=== PATIENT | female | born 1945 | race Caucasian/White ===

== ENCOUNTER 2020-03-31 15:23 | Observation (INO) | payer MEDICARE, SELFPAY ==
--- NOTE | ~2020-03-31 | CT_ITS ---
EXAMINATION: CT brain wo con DATE: 04/01/2020 16:59 INDICATION: Recurrent headache with fever TECHNIQUE: Computed tomography (CT) of the head was performed without intravenous contrast. The mA wa s adjusted according to patient size. Iterative reconstruction technique was employed. Exam dose: 60 5.33 mGy-cm total exam DLP. COMPARISON: 08/31/2018 CT brain 08/31/2018 MRI brain/brainstem FINDINGS: There is moderate cerebral atrophy, more prominent in the frontal areas. No intracranial mass lesion or hemorrhage or cerebrovascular accident. No subdural or epidural hemat ashley. Bilateral hyperostosis frontalis interna. No skull fracture or bone destruction. IMPRESSION: Moderate cerebral atrophy; no acute intracranial finding or significant change Reviewed, dictated and finalized at [facility]. Reviewed, dictated and finalized at [facility]. IMPRESSION: Moderate cerebral atrophy; no acute intracranial finding or signif icant change
--- NOTE | ~2020-03-31 | XR_ITS ---
EXAMINATION: XR chest 1V portable 03/31/2020 16:48 INDICATION: Fever and shortness of breath PROCEDURE: AP portable chest COMPARISON: 08/30/2018 FINDINGS: The lungs are clear. Mild cardiomegaly. Chronic elevation of the right diaphragm suggesting phrenic nerve paralysis. There are no pleural effusions. There is no pneumothorax suspected. IMPRESSION: 1: NO ACUTE CARDIOPULMONARY DISEASE. Reviewed, dictated and finalized at location [facility].
[2020-03-31 15:29] VITALS: BP 175/75; PULSE 104; RESP 20; TEMP 37.9; O2SAT 97
--- NOTE | 2020-03-31 15:56 | ECG_ITS ---
Measurements Intervals [place] Rate: 98 P: 35 [place]: 201 QRS: -3 QRSD: 97 T: 68 QT: 275 QTc: 351 Interpretive Statements SINUS RHYTHM NONSPECIFIC T-WAVE ABNORMALITY- LAT/HIGH LAT LEADS BORDERLINE ECG Electronically Signed On 03-31-2020 17:22:46 CDT by Viral Burciaga D.O.
[2020-03-31 16:25] LABS: Basophils Percent Auto 0.3 % (0.2-1.2); Eosinophils Absolute Auto 0.1 K/mm3 (0-0.3); Eosinophils Percent Auto 0.5 % (0-4.4); Hematocrit 37.3 % (37.0-47.0); Hemoglobin 12.4 g/dL (12.0-15.0); Immature Granulocyte Absolute 0.07 K/mm3 (0.00-0.031); Immature Granulocyte Percent A 0.5 % (0-0.5); Lymphocytes Absolute Auto 0.57 K/mm3 (0.9-3.2); Lymphocytes Percent Auto 4.2 % (18.3-44.2); Mean Corpuscular HGB Conc 33.2 g/dl (32-36); Mean Corpuscular Hemoglobin 28.8 pg (26-34); Mean Corpuscular Volume 86.5 fl (80-100); Mean Platelet Volume 10.7 fl (7.4-10.4); Monocytes Absolute Auto 0.6 K/mm3 (0.1-0.6); Monocytes Percent Auto 4.7 % (2.6-8.5); Neutrophils Absolute Auto 12.1 K/mm3 (1.3-6.7); Neutrophils Percent Auto 89.8 % (45.5-73.1); Platelet Count Result 230 k/mm3 (150-375); Red Blood Count 4.31 M/mm3 (4.2-5.4); Red Cell Distribution Width 12.9 % (11.5-14.5); White Blood Count 13.5 K/mm3 (4.5-10.0)
[2020-03-31 16:35] LABS: Prothrombin Time 12.7 Seconds (11.1-14.7)
[2020-03-31 16:36] LABS: Partial Thromboplastin Time 28.7 SECONDS (22.3-36.8)
--- NOTE | 2020-03-31 16:36 | ED.FEVER ---
HPI - Fever General Chief Complaint: Fever Stated Complaint: fevers Time Seen by Provider: 03/31/20 16:00 History of Present Illness HPI Narrative: Patient is a 74-year-old female who presents ER with fever. Sudden onset this morning. Associated with body aches and fatigue and chills. Reports she has been having these symptoms once a month for the last 3 to 4 months. The symptoms only last for 24 hours that is why she thought she would come in today when it occurred. Reports she has been cooped up in her house around nobody. Her only possible exposure is her son who is a nurse however the last time she saw him he was wearing a mask and was 20 feet away from her. She has mild cough but no runny nose/sore throat. She is without any abdominal or urinary symptoms. Related Data Home Medications Medication Instructions Recorded Confirmed multivitamin 1 tablet PO DAILY 08/31/19 methylprednisolone 4 mg PO DAILY 03/31/20 Allergies Allergy/AdvReac Type Severity Reaction Status Date / Time wool AdvReac Intermediate Itching Verified 03/31/20 16:21 ANESTHETICS AdvReac Severe DIFFICULTY Uncoded 03/31/20 16:21 WAKING Review of Systems Review of Systems: All systems reviewed & are unremarkable except as noted in HPI and below Constitutional: Constitutional: Reports chills, Reports fatigue and Reports fever(s) ENT: Denies dizziness, Denies nasal congestion and Denies sore throat Cardiovascular: Cardiovascular: Reports chest pain (Reports mild discomfort that is normal for her this been ongoing since begi) PMFSH Past Medical History Medical History (Updated 03/31/20 @ 19:20 by Ramy So MD) Anxiety Chronic SI joint pain Essential (primary) hypertension Hyperlipidemia Insomnia Left hip pain Osteoarthritis Sciatic leg pain Surgical History Surgical History (Updated 08/31/19 @ 14:[address] NP) H/O breast augmentation History of appendectomy Exam Narrative: Exam Narrative: GENERAL: Well-appearing, well-nourished, and in no acute distress. HEAD: Normocephalic, atraumatic. ENT: Mucous membranes moist. NECK: Supple. CHEST: Clear to auscultation. No respiratory distress. HEART: Regular rate and rhythm. Normal peripheral pulses. ABDOMEN: Soft, nontender, nondistended, mild CVA tenderness right greater than left. EXTREMITIES: Normal range of motion. No edema. SKIN: Warm, dry, no rash. NEURO: Alert and oriented x3. Course Course Emergency Course: Patient informed of results. Early sepsis by lab work. Suspect COVID infection. Admit to hospital service. Vital Signs Vital signs: Vital Signs Temperature 100.2 F H 03/31/20 15:29 Pulse Rate 104 H 03/31/20 15:29 Respiratory Rate 20 03/31/20 15:29 Blood Pressure 175/75 H 03/31/20 15:29 Pulse Oximetry 97 03/31/20 15:29 Temperature 98.0 F 03/31/20 18:25 Pulse Rate 100 03/31/20 18:13 Respiratory Rate 20 03/31/20 18:13 Blood Pressure 133/56 L 03/31/20 18:13 Pulse Oximetry 99 03/31/20 18:13 MDM - Fever Lab Data Result diagrams: 03/31/20 16:11 03/31/20 16:11 Labs: Lab Results 03/31/20 03/31/20 03/31/20 Range/Units 16:11 16:11 16:11 WBC 13.5 H (4.5-10.0) K/mm3 RBC 4.31 (4.2-5.4) M/mm3 Hgb 12.4 (12.0-15.0) g/dL Hct 37.3 (37.0-47.0) % MCV 86.5 (80-100) fl MCH 28.8 (26-34) pg MCHC 33.2 (32-36) g/dl RDW 12.9 (11.5-14.5) % Plt Count 230 (150-375) k/mm3 MPV 10.7 H (7.4-10.4) fl Immature Gran % (Auto) 0.5 (0-0.5) % Neut % (Auto) 89.8 H (45.5-73.1) % Lymph % (Auto) 4.2 L (18.3-44.2) % Trigg % (Auto) 4.7 (2.6-8.5) % Eos % (Auto) 0.5 (0-4.4) % Baso % (Auto) 0.3 (0.2-1.2) % Lymph # (Auto) 0.57 L (0.9-3.2) K/mm3 Trigg # (Auto) 0.6 (0.1-0.6) K/mm3 Eos # (Auto) 0.1 (0-0.3) K/mm3 Baso # (Auto) 0.0 (0.0-0.1) K/mm3 Abs Immat Gran (auto) 0.07 H (0.00-0.031) K/mm3 Absolute Neuts (
[2020-03-31 16:39] LABS: Lactic Acid Reflex 2.4 mmol/L (0.7-2.1)
[2020-03-31 16:41] LABS: Alanine Aminotransferase 22 U/L (4-35); Albumin Level 4.2 g/dL (3.5-5.1); Alkaline Phosphatase 58 U/L (38-126); Aspartate Amino Transferase 28 U/L (14-36); Bilirubin,Total 0.4 mg/dL (0.2-1.3); Blood Urea Nitrogen 10 mg/dL (7-17); CRP 1.4 mg/dL (<1.0); Carbon Dioxide 22 mmol/L (22-30); Chloride 100 mmol/L (98-107); Estimated CRCL calculation 51 ml/min; Estimated Glomerular Filt Rate > 60; Glucose 153 mg/dL (65-105); Lipase 133 U/L (23-300); Potassium 4.3 mmol/L (3.4-5.0); Sodium 132 mmol/L (137-145)
[2020-03-31 16:50] LABS: Troponin I < 0.012 ng/mL (0.000-0.034)
[2020-03-31] MEDS: ACETAMINOPHEN 500 MG TABLET 1000 MG PO (16:58)
[2020-03-31] MEDS: SODIUM CHLORIDE 0.9% IV 1,000 ML 999 ML IV CONT (16:58)
[2020-03-31 18:13] VITALS: BP 133/56; PULSE 100; RESP 20; O2SAT 99
[2020-03-31 18:25] VITALS: TEMP 36.7
[2020-03-31 18:34] LABS: Add Urine Microscopic? NO; Appearance Urine Clear (Clear); Bilirubin Urine Negative (Negative); Blood Urine Negative (Negative); Color Urine Straw (Yellow); Glucose Urine UA Negative (Negative); Ketones Urine Negative (Negative); Leukocyte Esterase Ur Negative LEU/UL (Negative); Nitrate Urine Negative (Negative); Protein Urine Negative (Negative); Specific Grav Ur 1.006 (1.001-1.035); Urobilinogen Urine Negative mg/dL (<2.0)
[2020-03-31 19:23] LABS: Reflex Lactic Acid Yes or No Add Lactic
[2020-03-31 19:31] VITALS: BP 122/78; PULSE 78; RESP 20; O2SAT 99
[2020-03-31 21:34] LABS: Lactic Acid 2.3 mmol/L (0.7-2.1)
--- NOTE | 2020-03-31 22:38 | ADMGEN ---
This patient, Shannan Orona, was admitted to [facility] Surg Room 327-01. Patient/family oriented to hospital policies and general routines including ID bracelet, bed and alarms, visiting hours, pain management, procedures, bathroom and other care routines, personal items, smoking policy, room service/diet, and visiting hours. Valuables list has been completed. Information on how to activate the Rapid Response Team has been discussed. Patient/Family are encouraged to report perceived risks to care and to ask questions if they do not understand what they are told or what they should do.
[2020-04-01] VITALS: BP 131/51; PULSE 95; RESP 20; TEMP 36.7; O2SAT 96; BMI 32.2
[2020-04-01] MEDS: SODIUM CHLORIDE 0.9% IV 1,000 ML 125 ML IV CONT (00:49)
[2020-04-01 02:00] VITALS: BP 117/50; PULSE 84; RESP 18; TEMP 36.2; O2SAT 97
[2020-04-01 06:00] VITALS: BP 139/86; PULSE 74; RESP 18; TEMP 37.1; O2SAT 97
[2020-04-01 09:26] LABS: Hematocrit 33.2 % (37.0-47.0); Hemoglobin 11.1 g/dL (12.0-15.0); Mean Corpuscular HGB Conc 33.4 g/dl (32-36); Mean Corpuscular Hemoglobin 28.9 pg (26-34); Mean Corpuscular Volume 86.5 fl (80-100); Mean Platelet Volume 10.6 fl (7.4-10.4); Platelet Count Result 198 k/mm3 (150-375); Red Blood Count 3.84 M/mm3 (4.2-5.4); Red Cell Distribution Width 13.2 % (11.5-14.5); White Blood Count 7.6 K/mm3 (4.5-10.0)
--- NOTE | 2020-04-01 09:36 | PM.IMHP ---
H&P: HPI History of Present Illness Chief complaint: covid pui, viral syndrome Narrative: Date of admission: 03/31/2020 Date of discharge: 04/01/2020 Shannan Orona is a 74 year old female with a PMH significant for HTN, HLD, and anxiety who presented to the emergency department on 03/31/2020 from home following complaints of a dull aching headache rated 8/10 in severity that resolved overnight. She tells me this is her fourth episode since September of a very severe headache in her frontal region. Her headaches typically last approximately 12-15 hours. She denies confusion. It is not similar to migraines she has had in the past and she does not believe these are migraines. She denies any prodromal symptoms. When she gets a headache, she also feels extremely weak and has trouble getting around. She also has associated fever and chills with her headache episodes. She has several other complaints including chapped lips, dry cough, and occasional nausea. She denies any episodes of abdominal pain, vomiting, or diarrhea. She denies shortness of breath or chest pain. She does not endorse sore throat, dysphagia, or odynophagia. She denies sinus pressure or congestion. She has not had visual changes. She denies dysuria, hematuria, urgency, or frequency. Presently, she feels well and her only complain is fatigue. She tells me she is usually able to get around at home without difficulty, but when she has episodes of headache and weakness she struggles more. It is worth noting that the patient has been ordering her Xanax online from [facility] since September. She mentions that her symptoms started to occur around the same time, and wonders if this might be related. She has not been around anyone with COVID-19 and has been following precautions, her Covid test is pending. Her CXR and UA were unremarkable. Review of Systems Review of Systems: Narrative: A 12 point review of systems was reviewed with pertinent positives and negatives as per HPI. [facility] Past Medical History Medical History (Updated 04/01/20 @ 10:18 by Norah Gorman PA-C) Anxiety Chronic SI joint pain Essential (primary) hypertension Hyperlipidemia Insomnia Left hip pain Osteoarthritis Sciatic leg pain Surgical History Surgical History (Updated 04/01/20 @ 11:38 by Norah Gorman PA-C) H/O breast augmentation 1969 History of appendectomy History of facelift 2009 Family History Family History (Updated 04/01/20 @ 11:40 by Norah Gorman PA-C) Mother Suicide Father Diabetes mellitus Heart disease Cancer Unspecified type/location Son Malignant neoplasm of prostate Social History Social History (Updated 04/01/20 @ 11:42 by Norah Gorman PA-C) Social History: Ms. Orona lives at home alone. She is independent in her ADLs and drives herself. 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 Her PCP is Dr. Reaves. Her son, Christian, is a nurse at [employer]. She appoints Christian as her surrogate decision maker. She is unable to tell me what she wishes her code status to be and defers this decision to her son. Smoking status: Never smoker Alcohol intake: current Alcohol use details: 1 glass of wine per month Substance use: never Living arrangements: alone Occupation/Education: retired Gender identity (if verbalized by the patient): Female Spiritual care concerns: No Meds Home Medications and Allergies Home Medications Medication Instructions Recorded Confirmed Type multivitamin 1 tablet PO HS 08/31/19 03/31/20 History alendronate 70 mg tablet 70 mg PO WEEKLY #12 tablet 12/29/19 03/31/20 Rx alprazolam 0.5 mg PO HS 03/31/20 03/31/20 History glucosamine sulfate [Glucosamine] 500 mg PO HS 03/31/20 03/31/20 History lisinopril 10 mg PO HS 03/31/20 03/31/20 History simvastatin [Zocor] 40 mg PO HS 03/31/20 03/31/20 History Allergies Allergy/AdvReac Type Severity Reaction Status Date / Time wool AdvReac Intermed
[2020-04-01 09:38] LABS: Lactate Dehydrogenase 398 U/L (313-618)
[2020-04-01 09:42] LABS: CRP 4.9 mg/dL (<1.0); Creatine Kinase 87 U/L (30-135)
[2020-04-01 09:47] LABS: Alanine Aminotransferase 18 U/L (4-35); Albumin Level 3.6 g/dL (3.5-5.1); Alkaline Phosphatase 48 U/L (38-126); Aspartate Amino Transferase 20 U/L (14-36); Bilirubin,Total 0.4 mg/dL (0.2-1.3); Blood Urea Nitrogen 9 mg/dL (7-17); Calcium 8.3 mg/dL (8.4-10.2); Carbon Dioxide 25 mmol/L (22-30); Chloride 108 mmol/L (98-107); Estimated CRCL calculation 58 ml/min; Estimated Glomerular Filt Rate > 60; Glucose 104 mg/dL (65-105); Potassium 3.9 mmol/L (3.4-5.0); Sodium 137 mmol/L (137-145)
[2020-04-01 10:00] VITALS: BP 144/59; PULSE 87; RESP 20; TEMP 36.7; O2SAT 96
[2020-04-01 10:42] LABS: SARS-CoV-2 RNA PCR Negative
[2020-04-01 14:00] VITALS: BP 129/59; PULSE 65; RESP 20; TEMP 36.9; O2SAT 96
[2020-04-01 15:48] LABS: Amphetamine Screen Urine Negative (Negative); Barbiturate Screen Urine Negative (Negative); Benzodiazepines Screen Urine Positive (Negative); Cannabinoid Screen Urine Negative (Negative); Cocaine Screen Urine Negative (Negative); Methadone Screen Urine Negative (Negative); Opiate Screen Urine Negative (Negative); Phencyclidine Screen Urine Negative (Negative)
[2020-04-01] MEDS: ALPRAZolam 0.5 MG TABLET PO (20:39)
[2020-04-01] MEDS: FAMOTIDINE 20 MG TABLET PO (20:39)
[2020-04-01 22:00] VITALS: BP 153/61; PULSE 75; RESP 20; TEMP 36.6; O2SAT 97
[2020-04-02 06:00] VITALS: BP 140/65; PULSE 67; RESP 20; TEMP 36.5; O2SAT 93
[2020-04-02 06:23] LABS: Hematocrit 35.8 % (37.0-47.0); Hemoglobin 11.8 g/dL (12.0-15.0); Mean Corpuscular Hemoglobin 28.6 pg (26-34); Mean Corpuscular Volume 86.7 fl (80-100); Mean Platelet Volume 10.3 fl (7.4-10.4); Platelet Count Result 236 k/mm3 (150-375); Red Blood Count 4.13 M/mm3 (4.2-5.4); Red Cell Distribution Width 13.2 % (11.5-14.5); White Blood Count 6.2 K/mm3 (4.5-10.0)
[2020-04-02 06:32] LABS: Blood Urea Nitrogen 12 mg/dL (7-17); Calcium 8.7 mg/dL (8.4-10.2); Carbon Dioxide 25 mmol/L (22-30); Chloride 108 mmol/L (98-107); Estimated CRCL calculation 51 ml/min; Estimated Glomerular Filt Rate > 60; Glucose 110 mg/dL (65-105); Potassium 4.2 mmol/L (3.4-5.0); Sodium 139 mmol/L (137-145)
[2020-04-02 10:00] VITALS: BP 131/68; PULSE 78; RESP 18; TEMP 36.2; O2SAT 95
[2020-04-02] MEDS: FAMOTIDINE 20 MG TABLET PO (10:02)
--- NOTE | 2020-04-02 12:20 | PM.DS ---
DS: Admitting Diagnosis Admitting Diagnosis Admitting Diagnosis: Sepsis, unspecified organism DS: Discharge Diagnosis Discharge Diagnosis (1) Sepsis: Code(s): A41.9 - Sepsis, unspecified organism Status: Acute (2) Headache: Qualifiers: Headache type: unspecified Headache chronicity pattern: episodic headache Intractability: not intractable Qualified Code(s): R51 - Headache Code(s): R51 - Headache Status: Acute (3) Adverse drug effect: Qualifiers: Encounter type: initial encounter Qualified Code(s): T50.905A - Adverse effect of unspecified drugs, medicaments and biological substances, initial encounter Code(s): T50.905A - Adverse effect of unspecified drugs, medicaments and biological substances, initial encounter Status: Suspected (4) Generalized weakness: Code(s): R53.1 - Weakness Status: Acute (5) Essential (primary) hypertension: Code(s): I10 - Essential (primary) hypertension Status: Chronic (6) Person under investigation for COVID-19: Code(s): Z20.828 - Contact with and (suspected) exposure to other viral communicable diseases Status: Acute DS: Summary Hospital Course Reason for hospitalization: Fever Hospital Course: Mrs. Orona is a 74 y.o. female with PMH significant for HTN, HLD, and anxiety who presented to the emergency department on 03/31/2020 from home following complaints of a dull aching headache rated 8/10 in severity that resolved overnight. She also reported fever prior to admission. She reported four prior episodes since September. She also reported chapped lips and dry cough. She also reported ordering Xanax online from [facility] since September. She mentions that her vague symptoms started to occur around the same time, and wonders if this might be related. Initial workup in the ED revealed WBC 13,500, Hb 12.4, Hct 37.3, sodium 132, lactic acid 2.4, LFTs WNL, CRP 1.4, unremarkable UA, and chest xray with no evidence of acute cardiopulmonary disease. She was admitted to the hospitalist service in an isolation room for COVID-[address] was performed and revealed moderate cerebral atrophy without acute findings including no evidence of mass lesion, hemorrhage, or CVA. She met SIRS criteria with fever, tachycardia, and leukocytosis at admission. Lactic elevated at 2.4. This appears to have resolved. She is afebrile, leukocytosis resolved, and lactic is now 1.0. Blood cultures were obtained and reveal NGTD. Her fever resolved. There was no obvious source of infection and it is likely that she may have had a viral syndrome or adverse reaction to her non-FDA approved Xanax. Urine drug screen was positive for benzodiazepines. COVID-19 testing was negative. Her fevers resolved. Heavy metal panel was ordered and is pending. Extensive time was spent counseling the patient on the importance of avoiding non-FDA approved medications as there is the potential for tampering, mislabeling, or unregulated components. Her sx may be related to these medications. She was evaluated by PT/OT and she was at her baseline level of functioning with further PT/OT not indicated. I was called to the room as she was threatening to leave AMA as she reported that she felt well and did not want to stay in the hospital any longer. I advised that she may discharge but discussed the importance of seeking immediate medical care should she develop any further headaches, fever, or other concerning symptoms. She was discharged in stable condition on the afternoon of 04/02/20. Status at Discharge Functional status at discharge: independent ambulation Overall status at discharge: patient is back to baseline Time Spent with Patient Time attestation: Total time spent providing and/or coordinating discharge services: 35 minutes Exam Narrative: Exam Narrative: General: Well-developed and well-nourished 74 y.o. female who is sitting in the chair fully dressed and requesting
[2020-04-05 22:42] LABS: Arsenic, Blood <3 mcg/L (<23); Lead, Blood 5 mcg/dL (<5); Mercury, Blood <4 mcg/L (<=10)
== END 2020-04-02 12:00 | disposition home or self-care (01) ==
LOC: ANHED 19:20 → ANH3MEDSUR 19:55
PROVIDERS: Emergency Medicine; Physician Assistant; Admitting Provider Internal Medicine; Emergency Provider Emergency Medicine; PCP Family Medicine; Visit Provider Physician Assistant
DX: A41.9 Sepsis, unspecified organism (principal); R51 Headache; T50.905A Adverse effect of unspecified drugs, medicaments and biological substances, initial encounter; R53.1 Weakness; I10 Essential (primary) hypertension; E78.5 Hyperlipidemia, unspecified; F41.9 Anxiety disorder, unspecified; Z20.828 Contact with and (suspected) exposure to other viral communicable diseases; Z79.899 Other long term (current) drug therapy
CPT/HCPCS: 36415; 70450; 71045; 80048; 80053; 80307; 81003; 82175; 82550; 82728; 83605; 83615; 83655; 83690; 83825; 84484; 85025; 85027; 85610; 85730; 86140; 87040; 87635; 93005; 96360; 96361; 97161; 97165; 99285; A9270; C9803; G0378; J7030; U0003

== ENCOUNTER 2021-02-27 09:35 | Outpatient (CLI) | payer MEDICARE, SELFPAY ==
[2021-02-27 10:03] LABS: Alanine Aminotransferase 23 U/L (4-35); Albumin Level 4.1 g/dL (3.5-5.1); Alkaline Phosphatase 52 U/L (38-126); Anion Gap 12 mmol/L (8-16); Aspartate Amino Transferase 31 U/L (14-36); Bilirubin,Total 0.4 mg/dL (0.2-1.3); Blood Urea Nitrogen 14 mg/dL (7-17); Calcium 9.5 mg/dL (8.4-10.2); Carbon Dioxide 23 mmol/L (22-30); Chloride 109 mmol/L (98-107); Cholesterol 173 mg/dL (0-200); Estimated Glomerular Filt Rate > 60; Glucose 109 mg/dL (65-105); HDL Direct 65 mg/dL; Hemoglobin A1C 5.6 % (<5.7); Potassium 4.4 mmol/L (3.4-5.0); Sodium 144 mmol/L (137-145); Triglycerides 141 mg/dL (<150)
[2021-02-27 10:14] LABS: LDL Cholesterol Direct 69 mg/dL
== END 2021-02-27 09:36 | disposition home or self-care (01) ==
PROVIDERS: PCP Family Medicine; Visit Provider Physician Assistant
DX: R73.09 Other abnormal glucose (principal); E78.5 Hyperlipidemia, unspecified; I10 Essential (primary) hypertension
CPT/HCPCS: 36415; 80053; 80061; 83036

== ENCOUNTER 2021-08-10 07:00 | Observation (INO) | payer MEDICARE, SELFPAY ==
[2021-08-10] VITALS (17 sets, daily range): BP systolic 130–152; BP diastolic 54–73; PULSE 79–104; RESP 16–21; TEMP 36.4–37.6; O2SAT 93–100; BMI 32.0
--- NOTE | ~2021-08-10 | XR_ITS ---
EXAMINATION: XR chest 2V EXAM DATE: 08/10/2021 07:28 INDICATION: Midsternal chest pain radiating to back. TECHNIQUE: Frontal and lateral projections of the chest obtained and reviewed. There is no prior conrad dy for comparison. FINDINGS: There is elevated right hemidiaphragm, possible chronic paralysis. Small amount of bibasila r airspace disease probably atelectasis. No pneumothorax or pleural effusion. Cardiomediastinal silho uette is normal. There are mild bony degenerative changes. IMPRESSION: 1. Elevated right hemidiaphragm, possible paralysis. 2. Bibasilar subsegmental opacity probably atelectasis. Reviewed, dictated and finalized at location [facility]. 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
--- NOTE | ~2021-08-10 | CT_ITS ---
EXAMINATION: CTA chest PE protocol DATE: 08/10/2021 15:51 INDICATION: Midsternal chest pain with inspiration. TECHNIQUE: Computed tomography (CT) pulmonary angiogram of the chest was performed with 100 mL Omnipa que-350 intravenous contrast. Additional 3D reconstructions utilizing coronal maximum intensity proje ction (MIP) were performed. Automated exposure control and iterative reconstruction technique were em ployed. The dose-length product was 624.34 mGy-cm. COMPARISON: None FINDINGS: Excellent contrast opacification of the pulmonary arteries. There is mild streak artifact from dense contrast in the superior vena cava and right atrium. Severe respiratory motion artifact throughout laina th lungs which significantly decreases sensitivity in the segmental and subsegmental pulmonary arteri es. No definite pulmonary embolism. Elevation of the right hemidiaphragm with bibasilar consolidation in the right lower lobe with progressive crowding and favor atelectasis over pneumonia. Additional m ild discoid atelectasis in the right middle lobe and lingula. No pulmonary edema, pleural effusion or pneumothorax. Cardiomegaly. Atherosclerotic coronary artery calcifications. No pericardial effusion. Thoracic aorta is normal in caliber with no dissection. No pathologically enlarged thoracic lymphade nopathy. Visualized upper abdomen is unremarkable. Moderate lower cervical and mild to moderate thora cic spondylosis. IMPRESSION: 1. No definite pulmonary embolism. Evaluation significantly limited in the segmental and subsegmental pulmonary arteries due to a large amount of motion artifact. 2. Consolidation at the basilar right lower lobe and favor atelectasis with associated volume loss an d elevation of the right hemidiaphragm. Pneumonia not absolutely excludable but considered less likel y. 3. Cardiomegaly. Reviewed, dictated and finalized at location A. [employer] IN[employer] IMPRESSION: 1. No definite pulmonary embolism. Evaluation significantly limited in the segm ental and subsegmental pulmonary arteries due to a large amount of motion artif act. 2. Consolidation at the basilar right lower lobe and favor atelectasis with ass ociated volume loss and elevation of the right hemidiaphragm. Pneumonia not abs olutely excludable but considered less likely. 3. Cardiomegaly.
--- NOTE | 2021-08-10 07:04 | ECG_ITS ---
Measurements Intervals [place] Rate: 90 P: 40 MD: 201 QRS: -21 QRSD: 93 T: 82 QT: 337 QTc: 414 Interpretive Statements SINUS RHYTHM VENTRICULAR PREMATURE COMPLEX INCOMPLETE RIGHT BUNDLE BRANCH BLOCK LOW QRS VOLTAGE IN PRECORDIAL LEADS BORDERLINE R WAVE PROGRESSION, ANTERIOR LEADS BORDERLINE ST-T WAVE ABNORMALITY- HIGH LATERAL LEADS BASELINE ARTIFACT- I, III, AVR, AVL BORDERLINE ECG Electronically Signed On 08-10-2021 7:23:15 [facility] by Viral Burciaga D.O.
[2021-08-10 07:19] LABS: Basophils Percent Auto 0.4 % (0.2-1.2); Eosinophils Absolute Auto 0.2 K/mm3 (0-0.3); Eosinophils Percent Auto 2.3 % (0-4.4); Hematocrit 37.2 % (37.0-47.0); Hemoglobin 12.2 g/dL (12.0-15.0); Immature Granulocyte Absolute 0.03 K/mm3 (0.00-0.031); Immature Granulocyte Percent A 0.3 % (0-0.5); Lymphocytes Absolute Auto 1.18 K/mm3 (0.9-3.2); Lymphocytes Percent Auto 12.6 % (18.3-44.2); Mean Corpuscular HGB Conc 32.8 g/dl (32-36); Mean Corpuscular Hemoglobin 29.2 pg (26-34); Mean Platelet Volume 10.8 fl (7.4-10.4); Monocytes Absolute Auto 0.8 K/mm3 (0.1-0.6); Monocytes Percent Auto 8.9 % (2.6-8.5); Neutrophils Absolute Auto 7.1 K/mm3 (1.3-6.7); Neutrophils Percent Auto 75.5 % (45.5-73.1); Platelet Count Result 219 k/mm3 (150-375); Red Blood Count 4.18 M/mm3 (4.2-5.4); White Blood Count 9.4 K/mm3 (4.5-10.0)
--- NOTE | 2021-08-10 07:24 | ED.CHESTPAIN ---
HPI - Chest Pain General Chief Complaint: Chest Pain Stated Complaint: CP Time Seen by Provider: 08/10/21 07:07 Source: patient Mode of arrival: ambulatory Limitations: no limitations History of Present Illness HPI narrative: Patient is a 75-year-old female complaining of chest pain, left chest, tightness, nonradiating, 5 out of 10, started early this morning. Patient denies any shortness of breath, abdominal pain, nausea, vomiting, diaphoresis, fever or chills. Related Data Allergies Allergy/AdvReac Type Severity Reaction Status Date / Time No Known Allergies Allergy Verified 08/10/21 07:38 Review of Systems Review of Systems: All systems reviewed & are unremarkable except as noted in HPI and below Constitutional: Constitutional: Denies body ache(s), Denies chills, Denies excessive sweating, Denies fatigue, Denies fever(s), Denies headache(s), Denies lethargy, Denies malaise, Denies weakness and Denies weight loss Eyes: Eyes: Denies blurry vision, Denies change in vision and Denies loss of vision ENT: Denies dizziness, Denies ear discharge, Denies headache(s), Denies lip swelling, Denies epistaxis, Denies nasal congestion, Denies neck pain, Denies throat swelling and Denies tongue swelling Cardiovascular: Cardiovascular: Denies diaphoresis, Denies rapid heart rate, Denies edema, Denies irregular heart rhythm, Denies lightheadedness, Denies palpitations, Denies dyspnea and Denies dyspnea on exertion Respiratory: Respiratory: Denies chest congestion, Denies cough, Denies hemoptysis, Denies dyspnea and Denies dyspnea on exertion Gastrointestinal: Gastrointestinal: Denies abdominal pain, Denies melena, Denies hematochezia, Denies diarrhea, Denies nausea, Denies vomiting and Denies hematemesis Musculoskeletal: Musculoskeletal: Denies abnormal gait, Denies deformity, Denies joint swelling, Denies limited range of motion, Denies neck pain and Denies numbness Neurologic: Denies Abnormal speech present, Denies abnormal gait, Denies confusion, Denies dizziness, Denies headache(s), Denies focal weakness, Denies loss of vision, Denies numbness, Denies Other visual disturbances, Denies Sensory deficit (Neuro) and Denies weakness Psychiatric: Psychiatric: Denies confusion, Denies depression, Denies auditory hallucinations, Denies homicidal ideation and Denies suicidal ideation Endocrine: Endocrine: Denies cold intolerance, Denies excessive sweating, Denies fatigue, Denies heat intolerance and Denies palpitations Hematologic/Lymphatic: Hematologic/Lymphatic: Denies easy bleeding and Denies easy bruising Allergic/Immunologic: Allergic/Immunologic: Denies lip swelling, Denies throat swelling and Denies tongue swelling PMFSH Comments Past medical history: Hypertension, hyperlipidemia Family history: Hypertension Social history: Non-smoker no EtOH use lives at home Exam Const: General: cooperative, healthy appearing, comfortable, no acute distress, well developed, alert and awake; No confusion Orientation/consciousness: oriented to person, oriented to place, oriented to time, patient oriented x3 and No confusion Limitations: no limitations HENMT: Head: normal to inspection, normocephalic and atraumatic Ears: hearing grossly normal bilaterally, TM normal on the right and TM normal on the left General nose exam: Normal external nose present, Normal nares present and No nasal discharge present Face and sinus: normal facial exam Mouth: Yes Normal oral and palatal mucosa present, Yes lip normal, Yes tongue normal and Yes oropharynx normal Throat: posterior oropharynx normal, tonsils normal and uvula midline Eyes: General: appearance normal, both eyes and all related structures Pupils: Equal, round and reactive pupils present EOM: EOMs intact bilaterally Neck: Neck: normal visual inspection, full ROM, no lymphadenopathy and no meningeal signs Chest: Chest palpation & inspection: normal inspection of the chest Resp: Effort & Inspection: ruchi
[2021-08-10 07:27] LABS: INR 0.9; Prothrombin Time 11.6 Seconds (11.1-14.7)
[2021-08-10 07:28] LABS: Partial Thromboplastin Time 28.7 SECONDS (22.3-36.8)
[2021-08-10 07:33] LABS: Alanine Aminotransferase 25 U/L (4-35); Alkaline Phosphatase 51 U/L (38-126); Anion Gap 7 mmol/L (8-16); Aspartate Amino Transferase 36 U/L (14-36); Bilirubin,Total 0.5 mg/dL (0.2-1.3); Blood Urea Nitrogen 15 mg/dL (7-17); Calcium 9.2 mg/dL (8.4-10.2); Carbon Dioxide 25 mmol/L (22-30); Chloride 106 mmol/L (98-107); Estimated Glomerular Filt Rate > 60; Glucose 129 mg/dL (65-110); Lipase 195 U/L (23-300); Potassium 4.7 mmol/L (3.4-5.0); Sodium 138 mmol/L (137-145)
[2021-08-10] MEDS: ASPIRIN 81 MG CHEWABLE TABLET 324 MG PO (07:41)
[2021-08-10 07:42] LABS: Troponin I < 0.012 ng/mL (0.000-0.034)
--- NOTE | 2021-08-10 10:34 | ADMGEN ---
This patient, Angela Orona, was admitted to IMU Room 200-01. Patient/family oriented to hospital policies and general routines including ID bracelet, bed and alarms, visiting hours, pain management, procedures, bathroom and other care routines, personal items, smoking policy, room service/diet, and visiting hours. Information on how to activate the Rapid Response Team has been discussed. Patient/Family are encouraged to report perceived risks to care and to ask questions if they do not understand what they are told or what they should do.
[2021-08-10 11:42] LABS: Troponin I < 0.012 ng/mL (0.000-0.034)
[2021-08-10 13:53] LABS: Troponin I < 0.012 ng/mL (0.000-0.034)
--- NOTE | 2021-08-10 14:33 | PM.IMHP ---
H&P: HPI History of Present Illness Date/Time: 08/10/21 14:33 this is a 75-year-old female patient who has had no previous history of any heart disease. She does however have a history of anxiety and hypertension. The patient states that she has been under lot of stress recently. She lives alone with her dogs. The patient came in today because of chest pain that is midsternal and is nonradiating. The patient stated she woke up around 1:00 a.m. this morning complaining of this discomfort. The patient stated it hurts when she takes a deep breath. She denies any history of having any PEs. She is not on any blood thinners. The patient stated for some reason when she coughs it makes it feel better. The patient denies any fever or chills or any shortness of breath. The patient stated that it has been a constant discomfort since 1:00 a.m. this morning. She did not take any medication for this discomfort. The patient was given aspirin in the emergency room. Her 3 troponins have been negative. The patient stated that she has been more anxious the last week than typical. Chest x-ray was read as elevated right hemidiaphragm, possible paralysis. Bibasilar subsegmental opacity probably atelectasis. Her chest x-ray was read as sinus rhythm ventricular premature complexes incomplete right bundle branch block. The patient stated that she had her flu shot and her COVID vaccine this past Wednesday and just has not felt well since then. The patient is being admitted to observation status on the date of service of 08/10/2021 Chief Complaint: Chest pain Review of Systems Review of Systems: All systems reviewed & are unremarkable except as noted in HPI and below Constitutional: Constitutional: Reports as per HPI and Reports no additional constitutional complaints Eyes: Eyes: Reports as per HPI and Reports no additional eye complaints ENT: Reports system reviewed and no additional complaints, except as documented and Reports Normal hearing present Cardiovascular: Cardiovascular: Reports no additional cardiovascular complaints Respiratory: Respiratory: Reports no additional respiratory complaints and Reports no additional respiratory complaints Gastrointestinal: Gastrointestinal: Reports as per HPI and Reports no additional gastrointestinal complaints Musculoskeletal: Musculoskeletal: Reports no additional musculoskeletal complaints Integumentary/Breasts: Skin/Breast: Reports system reviewed and no additional complaints, except as docu and Reports as per HPI Neurologic: Reports system reviewed and no additional complaints, except as documented, Reports as per HPI and Reports Normal hearing present Psychiatric: Psychiatric: Reports no additional psychiatric complaints and Reports as per HPI Endocrine: Endocrine: Reports no additional endocrine complaints Hematologic/Lymphatic: Hematologic/Lymphatic: Reports no additional hematologic/lymphatic complaints Allergic/Immunologic: Allergic/Immunologic: Reports no additional allergic/immunologic complaints [facility] Past Medical History Medical History (Updated 08/10/21 @ 14:40 by Apple Simmons NP) Anxiety Hyperlipidemia Hypertension Osteoporosis Surgical History Surgical History (Updated 08/10/21 @ 14:40 by Apple Simmons NP) S/P appendectomy Family History Family History (Updated 08/10/21 @ 14:41 by Apple Simmons NP) Son Acute myocardial infarction Father Acute myocardial infarction Mother Cerebrovascular accident Son Pulmonary emboli Social History Social History (Updated 08/10/21 @ 14:42 by Apple Simmons NP) Social History: The patient is . She had 2 sons and her 1 son Christian from a pulmonary emboli. Her ex- is now . 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 Pantera Mejias is her only son that is living and he is the durable power car customizer for healthcare. The patient is a lifelong nonsmoker. She said she tried marijuana twice in her life
[2021-08-10] MEDS: traMADol HCL (*CRX) 25 MG TABLET PO ×2 (15:19→20:04)
[2021-08-10] MEDS: lisinopriL 10 MG TABLET PO (19:55)
[2021-08-10] MEDS: FAMOTIDINE 20 MG/2 ML VIAL IV PUSH (19:55)
[2021-08-10] MEDS: SIMVASTATIN 20 MG TABLET 40 MG PO (19:55)
[2021-08-10] MEDS: ALPRAZolam (*CRX) 0.25 MG TABLET 0.75 MG PO (22:27)
[2021-08-11] VITALS (7 sets, daily range): BP systolic 131–144; BP diastolic 57–64; PULSE 75–92; RESP 18–22; TEMP 36.8–37.1; O2SAT 94–97
[2021-08-11 04:52] LABS: Basophils Percent Auto 0.3 % (0.2-1.2); Eosinophils Absolute Auto 0.1 K/mm3 (0-0.3); Hematocrit 32.9 % (37.0-47.0); Hemoglobin 10.9 g/dL (12.0-15.0); Immature Granulocyte Absolute 0.02 K/mm3 (0.00-0.031); Immature Granulocyte Percent A 0.3 % (0-0.5); Lymphocytes Absolute Auto 1.25 K/mm3 (0.9-3.2); Lymphocytes Percent Auto 20.5 % (18.3-44.2); Mean Corpuscular HGB Conc 33.1 g/dl (32-36); Mean Corpuscular Hemoglobin 29.4 pg (26-34); Mean Corpuscular Volume 88.7 fl (80-100); Mean Platelet Volume 10.2 fl (7.4-10.4); Monocytes Absolute Auto 0.9 K/mm3 (0.1-0.6); Monocytes Percent Auto 13.9 % (2.6-8.5); Neutrophils Absolute Auto 3.9 K/mm3 (1.3-6.7); Platelet Count Result 203 k/mm3 (150-375); Red Blood Count 3.71 M/mm3 (4.2-5.4); White Blood Count 6.1 K/mm3 (4.5-10.0)
[2021-08-11 05:22] LABS: Alanine Aminotransferase 19 U/L (4-35); Albumin Level 3.7 g/dL (3.5-5.1); Alkaline Phosphatase 51 U/L (38-126); Anion Gap 4 mmol/L (8-16); Aspartate Amino Transferase 20 U/L (14-36); Bilirubin,Total 0.5 mg/dL (0.2-1.3); Blood Urea Nitrogen 10 mg/dL (7-17); CRP 13.8 mg/dL (<1.0); Calcium 8.9 mg/dL (8.4-10.2); Carbon Dioxide 29 mmol/L (22-30); Chloride 101 mmol/L (98-107); Estimated CRCL calculation 50 ml/min; Estimated Glomerular Filt Rate > 60; Glucose 116 mg/dL (65-110); Lactate Dehydrogenase 383 U/L (313-618); Magnesium 1.8 mg/dL (1.6-2.3); Potassium 3.7 mmol/L (3.4-5.0); Sodium 134 mmol/L (137-145)
[2021-08-11 05:46] LABS: Thyroid Stimulating Hormone Reflex 0.824 uIU/mL (0.465-4.68)
[2021-08-11] MEDS: FAMOTIDINE 20 MG/2 ML VIAL IV PUSH (08:12)
[2021-08-11] MEDS: ENOXAPARIN 40 MG/0.4 ML SYRINGE SUB-Q (08:12)
[2021-08-11] MEDS: ASPIRIN 81 MG ENTERIC TABLET PO (08:12)
--- NOTE | 2021-08-11 09:13 | PM.CNCAR ---
Assessment and Plan Additional Plan 75-year-old lady presenting with chest pain that by history clearly sounds musculoskeletal. No ischemic features of this pain and it was going on for quite a few hours with completely normal biomarkers and benign looking ECG. She does have risk factors including hypertension and dyslipidemia but it is clear that the current symptoms were nonischemic in nature in my opinion would be that she can be dismissed home without further cardiac testing. There was some mention though that a stress echocardiogram was going to be ordered. If so I will cancel that as I do not believe we need to be conducting screening test for coronary disease in the face of these very atypical symptoms. Pantera Luna MD [facility] History of Present Illness History of Present Illness Consult date/time: 08/11/21 09:13 Consult reason: chest pain Reason For Visit: Chest Pain Narrative: This is a 75-year-old woman who I am asked to see at the request of the hospitalist this morning because of chest pain and ECG abnormalities. The patient is not known to have any cardiac problems prior to this event and was seen in room 200 at where she is currently comfortable and has no symptoms to report of any kind. She says that she was awakened in the middle of the night on Wednesday night with significant chest pain that she describes as a stinging sensation in in the center of the chest that awakened her from sleep. It was not associated with any sense of air hunger nausea vomiting or diaphoresis at that did not radiate to any other location. When the pain was present it was clearly exacerbated by the supine position or by respiratory effort. She states that she came to the emergency room because of these symptoms her evaluation there was essentially unremarkable she was admitted to IMU where she remains stable and asymptomatic. The patient's electrocardiogram shows a sinus mechanism with a PVC and some minor nonspecific T-wave changes. Patient has had 3 troponin levels done which are normal. She does not exercise regularly but in her usual daily activity she does not notice any sense of chest pain pressure or heaviness that is triggered by sustained exertion. She enjoys walking her dog for exercise and does not experience any difficulty doing this. She denies any sense of orthopnea PND or accumulating edema. She has never had a syncopal episode. Past medical history is primarily remarkable for hypertension and dyslipidemia for which she is being treated with TARSHA-inhibitor and simvastatin. She states that her father had coronary disease she thinks in his 50s but survived until he was 86 years old. Review of Systems Constitutional: Constitutional: Reports no additional constitutional complaints Eyes: Eyes: Reports no additional eye complaints ENT: Reports system reviewed and no additional complaints, except as documented Cardiovascular: Cardiovascular: Reports no additional cardiovascular complaints Respiratory: Respiratory: Reports no additional respiratory complaints Gastrointestinal: Gastrointestinal: Reports no additional gastrointestinal complaints Musculoskeletal: Musculoskeletal: Reports no additional musculoskeletal complaints Integumentary/Breasts: Skin/Breast: Reports system reviewed and no additional complaints, except as docu Neurologic: Reports system reviewed and no additional complaints, except as documented Endocrine: Endocrine: Reports no additional endocrine complaints Hematologic/Lymphatic: Hematologic/Lymphatic: Reports no additional hematologic/lymphatic complaints Allergic/Immunologic: Allergic/Immunologic: Reports no additional allergic/immunologic complaints PMFSH Past Medical History Medical History (Updated 08/10/21 @ 14:40 by Apple Simmons NP) Anxiety Hyperlipidemia Hypertension Osteoporosis Surgical History Surgical History (Updated 08/10/21 @ 14:40 by Apple Simmons NP) S/P appendectomy
--- NOTE | 2021-08-11 10:11 | PM.DS ---
DS: Admitting Diagnosis Discharge Date 08/11/2021 Admitting Diagnosis Chest pain DS: Discharge Diagnosis Discharge Diagnosis (1) Hyperlipidemia: Code(s): E78.5 - Hyperlipidemia, unspecified Status: Chronic Assessment and Plan: Continue with simvastatin (2) Hypertension: Code(s): I10 - Essential (primary) hypertension Status: Chronic Assessment and Plan: Continue with lisinopril (3) Anxiety: Code(s): F41.9 - Anxiety disorder, unspecified Status: Chronic Assessment and Plan: Continue with Xanax (4) Osteoporosis: Code(s): M81.0 - Age-related osteoporosis without current pathological fracture Status: Chronic Assessment and Plan: Continue alendronate (5) Chest pain: Qualifiers: Chest pain type: unspecified Qualified Code(s): R07.9 - Chest pain, unspecified Code(s): R07.9 - Chest pain, unspecified Status: Acute Assessment and Plan: The patient has constant midsternal chest pain and in the pain is worse with inspiration. I did order CTA. I ordered a stress echo as well. Her troponins were negative x3. The patient stated that she has felt ill since she had her COVID and flu shot this past Wednesday. Patient does not have any chest wall tenderness. No where she had any injury or any extraneous exercise. The patient does show a bundle-branch block. I have no EKG to compare this to. I will also consult Cardiology for further recommendation. Continue with daily aspirin. DS: Summary Hospital Course Reason for hospitalization: Chest pain Hospital Course: Please refer to admission H& P. Briefly, this is a 75-year-old female patient who has had no previous history of any heart disease. She does however have a history of anxiety and hypertension. The patient states that she has been under lot of stress recently. She lives alone with her dogs. The patient came in today because of chest pain that is midsternal and is nonradiating. The patient stated she woke up around 1:00 a.m. this morning complaining of this discomfort. The patient stated it hurts when she takes a deep breath. She denies any history of having any PEs. She is not on any blood thinners. The patient stated for some reason when she coughs it makes it feel better. The patient denies any fever or chills or any shortness of breath. The patient stated that it has been a constant discomfort since 1:00 a.m. this morning. She did not take any medication for this discomfort. The patient was given aspirin in the emergency room. Her 3 troponins have been negative. The patient stated that she has been more anxious the last week than typical. Chest x-ray was read as elevated right hemidiaphragm, possible paralysis. Bibasilar subsegmental opacity probably atelectasis. Her chest x-ray was read as sinus rhythm ventricular premature complexes incomplete right bundle branch block. The patient stated that she had her flu shot and her COVID vaccine this past Wednesday and just has not felt well since then. Per cardiology evaluation, his chest pain by history is clearly musculoskeletal. No ischemic features : normal biomarkers and benign looking ECG. She does have risk factors including hypertension and dyslipidemia but it is clear that the current symptoms were nonischemic in nature. She can be dismissed home without further cardiac testing. Patient can be discharged home on p.o. Tylenol for pain management. She will follow-up with her primary care provider within 1 week of discharge. Status at Discharge Functional status at discharge: independent ambulation Overall status at discharge: patient is back to baseline Time Spent with Patient Time attestation: Total time spent providing and/or coordinating discharge services: Time spent: Greater than 30 minutes Exam Const: General: cooperative, healthy appearing, comfortable, no acute distress, well developed, alert, awake and Physic
== END 2021-08-11 13:00 | disposition home or self-care (01) ==
LOC: ANHED 07:57 → ANHIMU 08-11 10:10
PROVIDERS: Emergency Medicine; Nurse Practitioner; Admitting Provider Internal Medicine; Emergency Provider Emergency Medicine; PCP Family Medicine; Visit Provider Internal Medicine
DX: R07.9 Chest pain, unspecified (principal); I10 Essential (primary) hypertension; E78.5 Hyperlipidemia, unspecified; F41.9 Anxiety disorder, unspecified; M81.0 Age-related osteoporosis without current pathological fracture; Z79.899 Other long term (current) drug therapy
CPT/HCPCS: 36415; 71046; 71275; 80053; 82728; 83615; 83690; 83735; 84443; 84484; 85025; 85610; 85730; 86140; 93005; 96372; 96374; 96376; 99285; A9270; G0378; J1650; Q9967

== ENCOUNTER 2022-01-09 00:47 | Day surgery (SDC) | payer MEDICARE, SELFPAY ==
[2022-01-02 11:07] VITALS: BMI 33.0
--- NOTE | 2022-01-02 11:29 | PC.NURSE ---
Report to the Outpatient Waiting Room, entrance under the green pavilion located off [facility], at time ___6:30AM____ on date __01/09/22 . OR Time: ___8:30AM . - You and your visitor will be asked a series of questions to screen for COVID 19 for your protection. - A mask is required within the hospital. Preoperative COVID Testing Requirements: No COVID Test needed if: (proof is required; if not received patient will have Rapid Test prior to entry) - Patient has received COVID Vaccine at least 14 days prior to procedure date or - Patient has positive COVID test result within last 90 days of surgery date. COVID Test needed if above criteria is not met If not COVID vaccinated a COVID test must be conducted within 72 hours of surgery and patient is asked to isolate self from time of testing until procedure. You will go to the [facility] for your COVID testing. The [facility] is located at the corner of [address] [facility]. You will only be called if COVID results are positive and your surgeon may reschedule your elective surgery date. Patients may have clear liquids (water, carbonated beverages, clear teas, apple juice) until 3 hours prior to surgery with a maximum of 20 ounces. - No food from midnight until time of surgery - Infants may have breast milk until 4 hours before surgery, formula 6 hours prior to surgery. - Children will be allowed to drink immediately following surgery. If applicable, please bring a bottle or sippy cup to assist with drinking. Juice, water, soda, and popsicles are readily available. For infants on formula, please bring formula the day of surgery. Pacifiers are allowed. Take the following medications with a SIP of water the morning of surgery: ___NONE Medications to discontinue per physician ____HOLD ASPIRIN 7 DAYS PRE-OP-LAST DOSE 01/02/22, HOLD ALL VITAMINS/SUPPLEMENTS 3 DAYS PRE-OP- LAST DOSE 01/05/22____ Please no make-up, nail indonesian, hairspray, perfume, deodorant, or body powder the day of surgery. No jewelry (including any body piercings) or valuables the day of surgery, leave them at home. Please take a shower or bath the night before, or the morning of, surgery with an antibacterial soap. Wear comfortable, loose fitting clothing. Children are encouraged to wear pajamas. - Jewelry must be removed prior to entering the operating room. Rings and piercings that are not removed may be cut off. - The hospital will not accept responsibility for valuables. - Please leave all valuables, including medications, at home the day of surgery. If you are going home after surgery, a licensed bobcat driver/labor must drive you home. - NO public transportation without another adult. - We recommend that an adult stay with you for 24 hours following discharge. - We also recommend that you do not drive, make important decision, drink alcoholic beverages, or take any drugs that were not prescribed by your health care provider for at least 24 hours after your discharge time. For Pediatric surgeries, we recommend two adults accompany the child home (only one inside the building at this time). One visitor will be allowed to accompany the patient into the hospital. Patients visitor will be instructed to remain with patient at all times or leave the building. We will allow the visitor to come back to the postoperative area when patient is ready. Follow any additional instructions given to you from your surgeon. Telephone instructions given to ___PATIENT and asked if any additional questions and then verbalized understanding. Patient advised to call surgeon office or pre surgery nurse liaison [phone] if any additional questions.
--- NOTE | ~2022-01-09 | XR_ITS ---
EXAMINATION: XR surgery orthopedic DATE: 01/09/2022 09:17 INDICATION: Surgery to the fourth toes of both feet TECHNIQUE: 2 fluoroscopic images including plantar views of the left and right forefoot were obtained during procedure performed by Dr. Iglesias. Radiologist was not present for the imaging or procedure . The amount of fluoroscopy time used during this procedure was 0.1 minutes. COMPARISON: None. FINDINGS: Osteotomy involving the heads of the left and right fourth proximal phalanges from likely hammertoe c orrection. There is percutaneous pin fixation at the bilateral fourth toes beginning at the avery of the distal phalanges and extending across both the proximal and distal interphalangeal joints of the base of the proximal phalanges. Alignment appears near-anatomic. No fracture. Osteoarthritis most pro minent at the left first metatarsophalangeal joint and to lesser degree at many of the remaining inte rphalangeal joints. IMPRESSION: 1. Fluoroscopy utilized during likely hammertoe corrections at the bilateral fourth toes. See procedu re note for further detail. Reviewed, dictated and finalized at location A. IMPRESSION: 1. Fluoroscopy utilized during likely hammertoe corrections at the bilateral fo urth toes. See procedure note for further detail.
[2022-01-09 06:49] VITALS: BP 143/81; PULSE 79; RESP 18; TEMP 35.8; O2SAT 99
[2022-01-09] MEDS: LACTATED RINGERS 1,000 ML 30 ML IV CONT (07:05)
--- NOTE | 2022-01-09 07:10 | WPDHPUPDATE1 ---
History and Physical Update Update Date/Time: 01/09/22 07:10 History and Physical has been reviewed, including an updated exam of the patient. There are NO changes in the patient's condition. Risks, benefits, and alternatives have been discussed and questions answered. Patient agrees to proceed with procedure.
--- NOTE | 2022-01-09 07:57 | WPDANESEPPF ---
Anes - Initial Pre Proc Eval Procedure: Operation Date: 01/09/22 08:30 Proposed Procedures p Arthroplasty of Fourth and Fifth Digit Bilateral Feet, Partial Phalangectomy Fifth Digit Bilaterally - Sanofrd Iglesias JR, MD Date/Time: 01/09/22 07:57 Surgeon: Sanford Iglesias JR, MD Pre Op Diagnosis: Painful 4th and 5th Hammer toes bilaterally Patient Data Age: 76 Gender: F Height: 1.57 m Weight: 79.15 kg Last Vital Signs Temp 35.8 C L 01/09/22 06:49 Pulse 79 01/09/22 06:49 Resp 18 01/09/22 06:49 BP 143/81 H 01/09/22 06:49 Pulse Ox 99 01/09/22 06:49 Allergies Allergy/AdvReac Type Severity Reaction Status Date / Time wool AdvReac Intermediate Itching Verified 01/09/22 07:11 Home Medications Medication Instructions Recorded Confirmed Type glucosamine sulfate [Glucosamine] 500 mg PO HS 03/31/20 01/09/22 History multivit with 1 tablet PO DAILY 04/11/20 01/09/22 History hbfmwzum-bcou-HF-lutein 8 mg iron-400 mcg-300 mcg tablet simvastatin 40 mg PO HS 08/10/21 01/09/22 History alendronate 70 mg tablet 70 mg PO WEEKLY #12 tablet 09/24/21 01/09/22 Rx lisinopril 10 mg tablet 10 mg PO HS #90 tablet 09/24/21 01/09/22 Rx alprazolam 0.25 mg PO HS PRN 01/02/22 01/09/22 History aspirin [Adult Low Dose Aspirin] 81 mg PO DAILY 01/02/22 01/09/22 History calcium carbonate-vitamin D3 1 tablet PO DAILY 01/02/22 01/09/22 History [Calcium + D] Patient hx anesthesia problems: none Family hx anesthesia problems: none Results Review: All pre-operative results and documents have been reviewed as part of the pre-operative evaluation. [facility] Past Medical History Medical History (System 11/26/21 @ 14:57 by Cele Garvin) Anxiety Anxiety Chronic SI joint pain Essential (primary) hypertension High cholesterol Hyperlipidemia Hyperlipidemia Hypertension Hypertension Insomnia Left hip pain Osteoarthritis Osteoporosis Sciatic leg pain Surgical History Surgical History (System 11/26/21 @ 14:57 by Cele Garvin) H/O breast augmentation 1970 History of appendectomy History of facelift 2009 S/P appendectomy Family History Family History (System 11/26/21 @ 14:57 by Cele Garvin) Son Acute myocardial infarction Father Acute myocardial infarction Mother Cerebrovascular accident Son Pulmonary emboli Mother Suicide Father Diabetes mellitus Heart disease Cancer Unspecified type/location Son Malignant neoplasm of prostate Mother Hypertension Family history of elevated blood lipids Cerebrovascular accident, Onset Age: 82 Father Family history of heart disease in male family member before age 55 Hypertension Patient's father is , Onset Age: 78 Sibling Patient's brother is in good health Grandparent Cerebrovascular accident Other Family history of cardiovascular disease Family history of malignant neoplasm Social History Social History (System 11/26/21 @ 14:57 by Cele Garvin) Social History: The patient is . She had 2 sons and her 1 son Christian from a pulmonary emboli. Her ex- is now . 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 Pantera Mejias is her only son that is living and he is the durable power estate planning attorney for healthcare. The patient is a lifelong nonsmoker. She said she tried marijuana twice in her life. Otherwise she does not use any illicit drugs. Code status full code Smoking status: Never smoker Alcohol intake: current Alcohol use details: 1 glass of wine per month Substance use: never Substance use type: does not use Living arrangements: alone Gender identity (if verbalized by the patient): Female Spiritual care concerns: No Anes - Eval Final PreProcedure Day of Procedure 01/09/22 07:57 Patient weight: obese Heart: regular rate and rhythm Lungs: clear to auscultation and normal air movement Airway: Mallampati sca
[2022-01-09] MEDS: ceFAZolin 2 GM/D5W 50 ML 2 GM/50 ML BAG IVPB (08:19)
[2022-01-09] MEDS: LIDOCAINE HCL 2% PF INJ 5 ML VIAL 40 ML INFILTRATE (08:52)
[2022-01-09 09:32] VITALS: BP 143/78; PULSE 73; RESP 12; TEMP 36.6; O2SAT 96
--- NOTE | 2022-01-09 09:33 | W.PM.PROC2 ---
Procedure Note - Detailed Date of Procedure 01/09/22 Pre-op Diagnosis 1. Painful 4th and 5th Hammertoes bilaterally with heloma molle Post-op Diagnosis Same Procedure Performed 1. Arthrodesis of the fourth digit proximal interphalangeal joint bilaterally 2. Arthroplasty of the fifth digit bilaterally 3. Partial phalangectomy distal phalanx fifth digit bilaterally Surgeon Sanford Iglesias JR, DPGeno Anesthesia MAC and Local Indications Painful heloma molle fourth inderdigital space bilaterally Description of Procedure Under mild sedation, the patient was brought in to the operating room, placed on the operating table in the supine position. A pneumatic ankle tourniquet was placed about the patient's right and left ankle. Following monitored anesthesia care, local anesthesia was obtained about the foot utilizing 17.5 mL of a 1:1 mixture of 2% Lidocaine plain and 0.5% Marcaine plain with a modified proximal Petersen block proximal to each corresponding digits. The foot was then scrubbed, prepped, and draped in the usual aseptic manner. An Esmarch bandage was then used to exsanguinate the patient's foot and the pneumatic ankle tourniquet was then inflated. Attention was directed to the fourth digit of the right foot where a 2cm incision was made from the distal interphalangeal joint extending to the base of the proximal phalanx. A transverse tenotomy was created dorsal to the proximal interphalangeal joint, next the head of the proximal phalanx was resected with an oscillating saw blade, Next, I implanted a 0.045 kwire through the middle and distal phalanx exiting the fourth digit and retrograded to the proximal phalanx. Fluoroscopy was used to make sure that the digit and implant were appropriately positioned. I reapproximated the subcutaneous structures with 4.0 Vicryl and the skin with 4-0 Prolene. Next, I made a one cm incision over the proximal interphalangeal joint of the 5th digit I made a transverse flexor tenotomy over the interphalangeal joint and resected the head of the proximal phalanx. I reapproximated the extensor tendon over the joint with 4-0 Vicryl and closed the skin with 4-0 Prolene in simple interrupted suture technique. Next, I made a one cm incision over the distal medial fifth digit distal phalanx and resected the medial one third of the distal phalanx with an oscillating saw blade. I closed the skin with 4-0 Prolene. The exact procedure was duplicated for the fourth and fifth digit of the left foot. Upon completion of the procedure, the incisions were dressed with Adaptic, 4x4s, Kerlix, and Coban. The pneumatic ankle tourniquet was then deflated and a prompt hyperemic response was noted to all digits of the right foot and left foot. A surgical shoe was then applied. The patient did very well with the procedure and the anesthesia. The patient was transferred to the recovery room with vital signs stable and vascular status intact to all toes of both feet. Following a period of postoperative monitoring, the patient will be discharged home on the following written and oral postoperative instructions: 1. The patient should keep the dressing clean, dry, and intact. Use a cast protector bag with showers. 2. The patient will be protected with surgical shoe. 3. Patient should ice and elevate the affected foot when at rest. 4. The patient is to contact Dr. Iglesias for all postop care and if any problems arise. 5. Prescriptions were written for Ibuprofen 800mg to be taken 1 p.o. 6 hours as needed for severe pain. Implants Two 0.045 kwire Estimated Blood Loss 1 Drains No Packing No Pathology None sent Complications No immediate complications Condition Stable Disposition Same day
[2022-01-09 10:00] VITALS: BP 150/77; PULSE 67; RESP 16; O2SAT 97
[2022-01-09 10:15] VITALS: BP 148/79; PULSE 66; RESP 16; O2SAT 98
== END 2022-01-09 10:45 | disposition home or self-care (01) ==
PROVIDERS: PCP Family Medicine; Visit Provider Podiatrist Foot & Ankle Surgery
PROC: (CPT 28285; principal; 2022-01-09 08:30)
DX: M20.41 Other hammer toe(s) (acquired), right foot (principal); M20.42 Other hammer toe(s) (acquired), left foot; L84 Corns and callosities; I10 Essential (primary) hypertension; E78.5 Hyperlipidemia, unspecified; M81.0 Age-related osteoporosis without current pathological fracture; F41.9 Anxiety disorder, unspecified; E66.9 Obesity, unspecified; Z68.31 Body mass index [BMI] 31.0-31.9, adult
CPT/HCPCS: 28285 ×4; C1713; J0690; J2250; J2704; J3010; J7120

== ENCOUNTER 2022-05-22 13:51 | Outpatient (CLI) | payer MEDICARE, SELFPAY ==
--- NOTE | ~2022-05-22 | DEXA_ITS ---
Bone Density Report Name: CRISSY CARNEY Age: 76 Sex: Female Ethnicity: White Date of : 1945 Indication: osteopenia; height loss; postmenopausal Referring Provider: BECKY LAMAR Study: Bone densitometry was performed. Exam Date: May 22, 2022 Accession number: [id number] Bone Density: Region BMD T-score Z-score Classification AP Spine(L1-L4) 0.975 -0.7 1.9 Normal Femoral Neck (Left) 0.584 -2.4 -0.2 Osteopenia Total Hip (Left) 0.823 -1.0 1.0 Normal Femoral Neck (Right) 0.592 -2.3 -0.1 Osteopenia Total Hip (Right) 0.743 -1.6 0.3 Osteopenia Total Hip Mean 0.783 -1.3 0.7 Osteopenia World Health Organization criteria for BMD impression classify patients as: Normal (T-score at or above -1.0), Osteopenia (T-score between -1.0 and -2.5), or Osteoporosis (T-score at or below -2.5). 10-year Fracture Risk(1): Major Osteoporotic Fracture 16% Hip Fracture 4.9% Reported Risk Factors: [place] (), Neck BMD=0.584, BMI=34.0 (1) FRAX(R) Version 3.08. Fracture probability calculated for an untreated patient. Fracture probability may be lower if the patient has received treatment. Previous Exams: Region Exam Age BMD T-score BMD Change BMD Change Date g/cm2 vs Baseline vs Previous AP Spine (L1-L4) 05/22/2022 76 0.975 -0.7 0.067 (7.4%)* 0.010 (1.1%) 12/28/2018 73 0.964 -0.8 0.057 (6.3%)* 0.057 (6.3%)* 10/30/2015 69 0.908 -1.3 Total Hip(Left) 05/22/2022 76 0.823 -1.0 0.042 (5.3%)* 0.010 (1.3%) 12/28/2018 73 0.813 -1.1 0.031 (4.0%)* 0.031 (4.0%)* 10/30/2015 69 0.782 -1.3 Total Hip(Right) 05/22/2022 76 0.743 -1.6 -0.002 (-0.2%) -0.017 (-2.3%) 12/28/2018 73 0.760 -1.5 0.016 (2.1%) 0.016 (2.1%) 10/30/2015 69 0.744 -1.6 *Denotes significance at 95% confidence level, LSC for AP Spine = 0.022 g/cm2, LSC for Total Hip = 0.027 g/cm2 Clinical Information Provided by Patient: Has used the following medications: Vitamin D, Calcium Patient maximum height was 62.5 Menopause Age: 48 Drinks caffeinated beverages Onset of menses at age 12 Number of children 2 Impression: The patient has low bone mass, based on the Left Femoral Neck T-score. The patient has an estimated ten-year risk of hip fracture of 4.9% and an estimated ten-year risk of major fracture of 16%, based on the WHO FRAX algorithm. No significant bone loss was observed. Discussion: BONE DENSITY IS LOW AT
== END 2022-05-22 13:52 | disposition home or self-care (01) ==
LOC: ANHIMG 13:52
PROVIDERS: PCP Family Medicine; Visit Provider Family Medicine
DX: Z78.0 Asymptomatic menopausal state (principal); M85.89 Other specified disorders of bone density and structure, multiple sites
CPT/HCPCS: 77080

== ENCOUNTER 2022-06-15 08:14 | Outpatient (CLI) | payer MEDICARE, SELFPAY ==
[2022-06-15 09:26] LABS: Hematocrit 37.5 % (37.0-47.0); Hemoglobin 12.1 g/dL (12.0-15.0); Mean Corpuscular HGB Conc 32.3 g/dl (32-36); Mean Corpuscular Hemoglobin 27.9 pg (26-34); Mean Corpuscular Volume 86.6 fl (80-100); Platelet Count Result 289 k/mm3 (150-375); Red Blood Count 4.33 M/mm3 (4.2-5.4); Red Cell Distribution Width 13.2 % (11.5-14.5); White Blood Count 5.2 K/mm3 (4.5-10.0)
[2022-06-15 09:40] LABS: Alanine Aminotransferase 26 U/L (6-35); Albumin Level 4.1 g/dL (3.5-5.1); Alkaline Phosphatase 73 U/L (38-126); Anion Gap 7 mmol/L (8-16); Aspartate Amino Transferase 25 U/L (14-36); Bilirubin,Total 0.4 mg/dL (0.2-1.3); Blood Urea Nitrogen 14 mg/dL (7-17); Calcium 9.2 mg/dL (8.4-10.2); Carbon Dioxide 27 mmol/L (22-30); Chloride 106 mmol/L (98-107); Cholesterol 156 mg/dL (0-200); Estimated Glomerular Filt Rate > 60; Glucose 121 mg/dL (65-110); HDL Direct 58 mg/dL; Potassium 4.4 mmol/L (3.4-5.0); Sodium 140 mmol/L (137-145); Triglycerides 153 mg/dL (<150)
[2022-06-15 09:48] LABS: Parathyroid Intact 43.9 pg/mL (7.5-53.5)
[2022-06-15 09:51] LABS: LDL Cholesterol Direct 65 mg/dL
[2022-06-15 09:58] LABS: Iron 79 ug/dL (37-170)
[2022-06-15 10:05] LABS: Percent Iron Saturation 23 % (20-50)
[2022-06-15 10:25] LABS: Vitamin D 25 Hydroxy 47.3 ng/mL
[2022-06-15 11:59] LABS: Hemoglobin A1C 5.5 % (<5.7)
== END 2022-06-15 08:15 | disposition home or self-care (01) ==
PROVIDERS: Physician Assistant; PCP Family Medicine; Referring Provider Internal Medicine Endocrinology, Diabetes & Metabolism; Visit Provider Family Medicine
DX: R53.83 Other fatigue (principal); D64.9 Anemia, unspecified; E78.2 Mixed hyperlipidemia; I10 Essential (primary) hypertension; E55.9 Vitamin D deficiency, unspecified; M81.0 Age-related osteoporosis without current pathological fracture; R73.09 Other abnormal glucose
CPT/HCPCS: 36415; 80053; 80061; 82306; 82728; 83036; 83540; 83550; 83970; 84443; 85027

== ENCOUNTER 2023-02-19 09:53 | Outpatient (CLI) | payer MEDICARE, SELFPAY ==
[2023-02-19 10:33] LABS: Anion Gap 5 mmol/L (8-16); Blood Urea Nitrogen 18 mg/dL (7-17); Calcium 9.4 mg/dL (8.4-10.2); Carbon Dioxide 30 mmol/L (22-30); Chloride 105 mmol/L (98-107); Estimated Glomerular Filt Rate > 60; Glucose 93 mg/dL (65-110); Potassium 4.6 mmol/L (3.4-5.0); Sodium 140 mmol/L (137-145)
[2023-02-19 10:47] LABS: Vitamin D 25 Hydroxy 48.8 ng/mL
== END 2023-02-19 09:54 | disposition home or self-care (01) ==
PROVIDERS: PCP Family Medicine; Visit Provider Internal Medicine Endocrinology, Diabetes & Metabolism
DX: M81.0 Age-related osteoporosis without current pathological fracture (principal); R79.89 Other specified abnormal findings of blood chemistry
CPT/HCPCS: 36415; 80048; 82306

== ENCOUNTER 2023-04-22 09:21 | Outpatient (CLI) | payer MEDICARE, SELFPAY ==
[2023-04-22 09:43] LABS: Basophils Percent Auto 0.6 % (0.2-1.2); Eosinophils Absolute Auto 0.2 K/mm3 (0-0.3); Eosinophils Percent Auto 3.4 % (0-4.4); Hematocrit 39.5 % (37.0-47.0); Hemoglobin 12.6 g/dL (12.0-15.0); Immature Granulocyte Absolute 0.02 K/mm3 (0.00-0.031); Immature Granulocyte Percent A 0.4 % (0-0.5); Lymphocytes Absolute Auto 1.32 K/mm3 (0.9-3.2); Mean Corpuscular HGB Conc 31.9 g/dl (32-36); Mean Corpuscular Hemoglobin 28.4 pg (26-34); Mean Platelet Volume 9.7 fl (7.4-10.4); Monocytes Absolute Auto 0.4 K/mm3 (0.1-0.6); Monocytes Percent Auto 8.2 % (2.6-8.5); Neutrophils Absolute Auto 3.3 K/mm3 (1.3-6.7); Neutrophils Percent Auto 62.4 % (45.5-73.1); Platelet Count Result 284 k/mm3 (150-375); Red Blood Count 4.44 M/mm3 (4.2-5.4); Red Cell Distribution Width 13.2 % (11.5-14.5); White Blood Count 5.3 K/mm3 (4.5-10.0)
[2023-04-22 09:52] LABS: Hemoglobin A1C 5.8 % (<5.7)
[2023-04-22 09:53] LABS: Alanine Aminotransferase 25 U/L (6-35); Alkaline Phosphatase 57 U/L (38-126); Anion Gap 4 mmol/L (8-16); Aspartate Amino Transferase 25 U/L (14-36); Bilirubin,Total 0.3 mg/dL (0.2-1.3); Blood Urea Nitrogen 13 mg/dL (7-17); Calcium 9.1 mg/dL (8.4-10.2); Carbon Dioxide 27 mmol/L (22-30); Chloride 105 mmol/L (98-107); Cholesterol 161 mg/dL (0-200); Estimated Glomerular Filt Rate 60; Glucose 108 mg/dL (65-110); HDL Direct 59 mg/dL; Potassium 4.3 mmol/L (3.4-5.0); Sodium 136 mmol/L (137-145); Triglycerides 158 mg/dL (<150)
[2023-04-22 10:03] LABS: LDL Cholesterol Direct 64 mg/dL
== END 2023-04-22 09:22 | disposition home or self-care (01) ==
LOC: ANHLAB 09:23
PROVIDERS: PCP Family Medicine; Visit Provider Family Medicine
DX: D64.9 Anemia, unspecified (principal); E03.9 Hypothyroidism, unspecified; E78.5 Hyperlipidemia, unspecified; I10 Essential (primary) hypertension; R73.03 Prediabetes; E78.2 Mixed hyperlipidemia
CPT/HCPCS: 36415; 80053; 80061; 83036; 84443; 85025

== ENCOUNTER 2024-02-04 09:34 | Outpatient (CLI) | payer MEDICARE, SELFPAY ==
[2024-02-04 10:47] LABS: Basophils Percent Auto 0.6 % (0.2-1.2); Eosinophils Absolute Auto 0.2 K/mm3 (0-0.3); Eosinophils Percent Auto 4.5 % (0-4.4); Hematocrit 41.5 % (37.0-47.0); Hemoglobin 13.2 g/dL (12.0-15.0); Immature Granulocyte Absolute 0.02 K/mm3 (0.00-0.031); Immature Granulocyte Percent A 0.4 % (0-0.5); Lymphocytes Absolute Auto 1.32 K/mm3 (0.9-3.2); Mean Corpuscular HGB Conc 31.8 g/dl (32-36); Mean Corpuscular Hemoglobin 28.2 pg (26-34); Mean Corpuscular Volume 88.7 fl (80-100); Mean Platelet Volume 10.8 fl (7.4-10.4); Monocytes Absolute Auto 0.5 K/mm3 (0.1-0.6); Monocytes Percent Auto 9.7 % (2.6-8.5); Neutrophils Percent Auto 58.8 % (45.5-73.1); Platelet Count Result 259 k/mm3 (150-375); Red Blood Count 4.68 M/mm3 (4.2-5.4); Red Cell Distribution Width 13.2 % (11.5-14.5); White Blood Count 5.1 K/mm3 (4.5-10.0)
[2024-02-04 10:58] LABS: Alanine Aminotransferase 24 U/L (6-35); Albumin Level 4.5 g/dL (3.5-5.1); Alkaline Phosphatase 52 U/L (38-126); Anion Gap 8 mmol/L (4-12); Aspartate Amino Transferase 27 U/L (14-36); Bilirubin,Total 0.6 mg/dL (0.2-1.3); Blood Urea Nitrogen 20 mg/dL (7-17); Calcium 9.2 mg/dL (8.4-10.2); Carbon Dioxide 24 mmol/L (22-30); Chloride 108 mmol/L (98-107); Cholesterol 170 mg/dL (0-200); Estimated Glomerular Filt Rate 60; Glucose 108 mg/dL (65-110); HDL Direct 65 mg/dL; Sodium 140 mmol/L (137-145); Triglycerides 188 mg/dL (<150)
[2024-02-04 11:11] LABS: Hemoglobin A1C 5.5 % (<5.7); LDL Cholesterol Direct 79 mg/dL
[2024-02-04 11:35] LABS: Vitamin D 25 Hydroxy 49.9 ng/mL
== END 2024-02-04 09:35 | disposition home or self-care (01) ==
LOC: ANHLAB 09:38
PROVIDERS: PCP Family Medicine; Visit Provider Family Medicine
DX: E78.5 Hyperlipidemia, unspecified (principal); I10 Essential (primary) hypertension; R73.03 Prediabetes; R53.83 Other fatigue; E78.2 Mixed hyperlipidemia; E55.9 Vitamin D deficiency, unspecified
CPT/HCPCS: 36415; 80053; 80061; 82306; 83036; 84443; 85025

== ENCOUNTER 2024-05-04 12:45 | Outpatient (CLI) | payer MEDICARE, SELFPAY ==
--- NOTE | ~2024-05-04 | XR_ITS ---
XR knee LT 3V Ordering provider: Josefina Vaughan PA-C History: . M25.569 - Pain in unspecified knee . Comparison: None. FINDINGS: BONES: No acute fracture or dislocation. JOINT SPACES: Narrowing of the medial compartment. Marginal osteophytes seen in the knee and patella SOFT TISSUES: Normal. IMPRESSION: No acute osseous abnormality left knee. Severe osteoarthritic changes. Reviewed, dictated and finalized at location A.
== END 2024-05-04 12:46 ==
LOC: MICIMG 12:46
PROVIDERS: PCP Physician Assistant Medical; Visit Provider Physician Assistant Medical
DX: M17.12 Unilateral primary osteoarthritis, left knee (principal)
CPT/HCPCS: 73562

== ENCOUNTER 2024-07-12 10:09 | Outpatient (RCR) | payer MEDICARE, SELFPAY ==
--- NOTE | 2024-07-12 11:05 | PTOPEVDC ---
Assessment and note entered by Divina Siegel, PT Thank you for referring Shannan Orona to [facility] [place].? An evaluation has been completed. No further treatment is needed. Evaluation/ Discharge Information Assessment Status Evaluation-discharge ICD-10 Condition Codes (PT) M25.561,Pain in left knee M25.562,Weakness R53.1 Onset February 2024 Subjective Information history of bilateral kne pain/OA; In February was pruning a tree in her yard and L knee popped- pain since then; had injection in L knee at her last dr appt, it helped the pain; has been taking celebrex and it is helping some, she stopped taking and had more knee pain. X ray of L knee: moderate to severe medial compartment & patella femoral OA. Activity: does all self care and home tasks, except mowing her yard; have ramp into her home; active and likes to do things herself; do not have any exercise equipment at home; have basement, but not have to go down there- avoids the stairs since saw the dr, have started doing some leg exercises- sitting knee extension and ankle DF to stretch knee; Goal: want to get exercises to help her knees Reported Pain Level Pain Score Self Report Additional Pain Score Comments pain range in the past week: 0-3/10 increase pain: increase activity- shop/on feet for 6 hours decrease pain; sit, rest, celebrex have not used heat/ice; instruct on PRN use have velcro brace- used when first hurt her knee- discussed PRN use. Assessment PT Clinical Summary Shannan has the diagnosis of bilateral knee pain/ OA. She is active and does all of her home and self care activities, except mowing her yard. The injection in her L knee decreased her pain. Self assessment functional score with LE functional scale of 69% limitation in activity level. The evaluation was completed and she was instructed on HEP to increase bilateral hip and knee strength and L knee extension ROM. Also educated on pain management techniques--heat/ice, use of support brace with more activit
== END 2024-07-12 12:34 | disposition home or self-care (01) ==
LOC: ANHPT 10:09
PROVIDERS: PCP Physician Assistant Medical; Visit Provider Orthopaedic Surgery
DX: M17.0 Bilateral primary osteoarthritis of knee (principal)
CPT/HCPCS: 97110; 97161; 97530

== ENCOUNTER 2024-08-29 09:43 | Outpatient (CLI) | payer MEDICARE, SELFPAY ==
[2024-08-29 10:23] LABS: Alanine Aminotransferase 22 U/L (6-35); Albumin Level 4.2 g/dL (3.5-5.1); Alkaline Phosphatase 54 U/L (38-126); Anion Gap 5 mmol/L (4-12); Aspartate Amino Transferase 25 U/L (14-36); Bilirubin,Total 0.5 mg/dL (0.2-1.3); Blood Urea Nitrogen 18 mg/dL (7-17); Calcium 9.5 mg/dL (8.4-10.2); Carbon Dioxide 28 mmol/L (22-30); Chloride 109 mmol/L (98-107); Cholesterol 174 mg/dL (0-200); Estimated Glomerular Filt Rate > 60; Glucose 116 mg/dL (65-110); HDL Direct 64 mg/dL; Potassium 4.6 mmol/L (3.4-5.0); Sodium 142 mmol/L (137-145); Triglycerides 145 mg/dL (<150)
[2024-08-29 10:34] LABS: LDL Cholesterol Direct 70 mg/dL
[2024-08-29 12:00] LABS: Vitamin D 25 Hydroxy 44.4 ng/mL
[2024-08-29 12:02] LABS: Hemoglobin A1C 5.7 % (<5.7)
== END 2024-08-29 09:44 | disposition home or self-care (01) ==
LOC: ANHLAB 09:44
PROVIDERS: PCP Family Medicine; Referring Provider Family Medicine; Visit Provider Internal Medicine Endocrinology, Diabetes & Metabolism
DX: R73.03 Prediabetes (principal); R79.89 Other specified abnormal findings of blood chemistry; M81.0 Age-related osteoporosis without current pathological fracture; E78.2 Mixed hyperlipidemia
CPT/HCPCS: 36415; 80053; 80061; 82306; 83036

== ENCOUNTER 2024-10-08 11:26 | Emergency (ER) | payer MEDICARE, SELFPAY ==
[2024-10-08 11:37] VITALS: BP 176/68; PULSE 78; RESP 18; TEMP 36.3; O2SAT 100
--- NOTE | 2024-10-08 11:50 | ED.DIZZY ---
HPI - Dizziness General Chief Complaint: Dizziness Stated Complaint: dizziness Time Seen by Provider: 10/08/24 11:30 Source: patient Mode of arrival: ambulatory Limitations: no limitations History of Present Illness HPI Narrative: Patient is an 78-year-old female who presents with dizziness that started morning(3 days). Feels felt a little tired now but otherwise well. There was no chest pain, headache, palpitations, nausea or vomiting before the dizziness started. The patient has not had this before. Patient states she thought she was having a migraine but the pain never fully came on. Since then patient has had intermittent dizziness throughout the day, feeling off balance but room is not spinning. Patient denies any changes in vision, numbness, tingling or weakness to extremities. Patient states if she keeps her head straight she is able to walk completely normal. Patient denies any falls. Does report some nausea when the dizziness is at it's peak. Patient has taken an aspirin. States she normally has tinnitus but that has resolved since dizziness started. Patient drove herself to be seen. Related Data Home Medications ?Medication ?Instructions ?Recorded ?Confirmed ?Last Taken ?Type glucosamine sulfate 500 mg tablet 500 mg PO HS 03/31/20 07/09/24 Unknown History (Glucosamine) [id number] 8 mg-folic 400 1 tablet PO DAILY 04/11/20 07/09/24 Unknown History mcg-K 50 mcg-lutein 300 mcg tablet (Centrum Silver Women) calcium 600 mg (as 1 tablet PO DAILY 01/02/22 07/09/24 Unknown History carbonate)-vitamin D3 5 mcg (200 unit) tablet Allergies Allergy/AdvReac Type Severity Reaction Status Date / Time wool AdvReac Intermediate Itching Verified 10/08/24 11:38 Anesthetics - Amide Type - AdvReac Unknown Unknown Verified 10/08/24 11:38 Select A Review of Systems Review of Systems: All systems reviewed & are unremarkable except as noted in HPI and below Constitutional: Constitutional: Denies body ache(s), Denies chills, Reports fatigue, Denies fever(s), Denies headache(s), Denies malaise and Denies weakness Eyes: Eyes: Denies blurry vision, Denies irritation and Denies loss of vision ENT: Denies otalgia, Denies headache(s), Denies nasal discharge, Denies sinus pain and Denies sore throat Cardiovascular: Cardiovascular: Denies chest pain, Denies irregular heart rhythm and Denies dyspnea Respiratory: Respiratory: Denies dyspnea Gastrointestinal: Gastrointestinal: Denies abdominal pain, Denies melena, Denies hematochezia, Denies diarrhea, Denies nausea and Denies vomiting Musculoskeletal: Musculoskeletal: Denies back pain, Denies myalgias and Denies arthralgias Integumentary/Breasts: Skin/Breast: Denies pruritus and Denies rash Neurologic: Reports dizziness, Denies headache(s), Denies loss of vision and Denies weakness Psychiatric: Psychiatric: Reports no additional psychiatric complaints Endocrine: Endocrine: Denies fatigue PMFSH Past Medical History Medical History Prediabetes Osteopenia Drug dependence Nausea & vomiting Coughing Chest tightness Bleeding nose Fever History of adverse reaction to anesthesia Knee effusion, right Degenerative joint disease of knee Right knee pain Fatigue Anemia Elevated glucose High cholesterol Hypertension Generalized weakness Headache Osteoarthritis Anxiety Insomnia Chronic SI joint pain Sciatic leg pain Left hip pain Hyperlipidemia Hypertension Anxiety Osteoporosis Surgical History Surgical History History of foot surgery H/O breast implant History of facelift 2010 History of appendectomy H/O breast augmentation 1970 S/P appendectomy Family History Family History Son Acute myocardial infarction Father Acute myocardial infarction Mother Cerebrovascular accident Son Pulmonary emboli Mother Suicide Father Diabetes mellitus Heart disease Cancer Unspecified type/location Son Malignant neoplasm of prostate Mother Hypertension Family history of elevated blood lipids Cerebrovascular accident, Onset Age: 82 Father Family history of heart disease in male family member before age 55 Hypertension Patient's father is , Onset Age: 78 Sibling Patient's brother is in good health Grandparent Cerebrovascular accident Other Family history of cardiovascular disease Family history of malignant neoplasm Social History Social History Social History: The patient is . She had 2 sons and her 1 son Christian from a pulmonary emboli. Her ex- is now . 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 Pantera Mejias is her only son that is living and he is the durable power finance attorney for healthcare. The patient is a lifelong nonsmoker. She said she tried marijuana twice in her life. Otherwise she does not use any illicit drugs. Code status full code Smoking status: Never smoker Second hand tobacco smoke exposure: No Alcohol intake: current Drinks per week: 2 Alcohol use details: 1 glass of wine per month Substance use: never Substance use type: does not use Lack of Transportation: No Lack of Food: Never True Current Housing: I Have Housing Concerned About Future Housing: No Difficulty Paying Gas/Electric Bills: No Difficulty Paying for Meds: No Currently Unemployed: No Education: Master's Degree or Higher Difficulty w/ Childcare or Family Care: No Living arrangements: alone Occupation/Education: retired Gender identity (if verbalized by the patient): Female Spiritual care concerns: No Agree to blood products: Yes Comments At time of signature, agree with nursing past medical, surgical, social and family history. There is no relevant family history pertinent to the presenting complaint. Exam Const: General: cooperative, healthy appearing, comfortable, no acute distress and well nourished Nutritional Appearance: well nourished Orientation/consciousness: patient oriented x3 Limitations: no limitations HENMT: Head: normal to inspection, normocephalic and atraumatic Ears: hearing grossly normal bilaterally, external ears normal, TM's normal bilaterally and EAC's normal Face/Nose/Sinus: Normal external nose present, normal facial exam and face symmetric Face and sinus: normal facial exam and face symmetric Mouth: Yes lip normal Eyes: General: appearance normal, both eyes and all related structures Alignment and Position: alignment normal and position normal Periorbital: periorbital findings normal Eyelids: eyelids normal Pupils: Equal, round and reactive pupils present EOM: EOMs intact bilaterally Neck: Neck: normal visual inspection, full ROM and supple Chest: Chest palpation & inspection: normal inspection of the chest Resp: Effort & Inspection: normal respiratory effort and able to speak in complete sentences Auscultation: clear to auscultation bilaterally Cardio: Rate: regular rate Rhythm: regular rhythm Heart sounds: S1 normal heart sound present and S2 normal heart sound present GI: Inspection: normal to inspection Skin: General skin exam: normal color and no rashes or lesions noted Neuro: General: patient oriented x3, moves all extremities and [place] (positive for horizontal nystagmus in both directions) Cranial nerves: Yes Equal, round and reactive pupils present, Yes Normal facial strength present, Yes facial symmetry, Yes Midline tongue present, Yes hard of hearing, Yes Ability to bilaterally rotate head present, Yes Ability to bilaterally elevate shoulders present and Yes Nystagmus present horizontal Cognition (Neuro): normal cognition Speech: normal speech Gait exam (Neuro): Normal gait present Motor exam (neuro): 5/5 motor strength present throughout, No tremor noted, No asterixis, Normal motor muscle tone present throughout and Motor abnormalities not present Sensory Exam: normal sensation Extrem: General: normal to inspection, full ROM and no edema Psych: Appearance: grossly normal and well kempt Mental Status: mental status grossly normal Speech and movement: Normal speech and movement present Affect: normal affect Attitude: cooperative Thought process: Normal thought process present Course Course Emergency Course: Patient is aware of diagnosis, understands and agrees to treatment plan. Anticipatory guidance given. Patient agrees to follow-up as directed and is aware of reasons to seek care at the emergency department. Portions of this record may have been created with voice recognition software Level of Care: Express Care Visit Vital Signs Vital signs: Vital Signs Temperature 36.3 C L 10/08/24 11:37 Pulse Rate 78 10/08/24 11:37 Respiratory Rate 18 10/08/24 11:37 Blood Pressure 176/68 H 10/08/24 11:37 Pulse Oximetry 100 10/08/24 11:37 Oxygen Delivery Room Air 10/08/24 11:37 Temperature 36.3 C L 10/08/24 11:37 Pulse Rate 78 10/08/24 11:37 Respiratory Rate 18 10/08/24 11:37 Blood Pressure 176/68 H 10/08/24 11:37 Pulse Oximetry 100 10/08/24 11:37 Oxygen Delivery Room Air 10/08/24 11:37 Reviewed MDM - Dizziness MDM Narrative Medical decision making narrative: Patient presenting with 3 days of frequent dizziness. Discussed potential risk of stroke with patient, however neuro exam showed no abnormalities and sensation and strength equal bilaterally. Patient has normal gait and is steady on her feet. Does not walk with can or walker. Patient states she normally has tinnitus in that has since resolved. Discussed starting meclizine and potential side effects. Patient is to follow-up with PCP this week. Discussed red flag symptoms and importance of going to the emergency department if symptoms are persistent or worsened even with meclizine use. Patients vertigo is felt to be likely peripheral in origin. there is no diplopia, dysarthria, or dysphagia. Patients gait is stable and there are no focal neurological deficits on exam. Risk for central causes has been reviewed. Patient felt likely reasonable for continued outpatient management and risks are felt to outweigh benefits for further imaging studies at this time. Pt well hydrated appearing, in no respiratory distress, hemodynamically stable. Recommend supportive care. The patient is stable at time of discharge the clinical impression was discussed and the patient was given the opportunity to ask questions, which were addressed as completely as possible given the information available at present. Anticipatory guidance and return to care precautions were discussed and the importance of primary care follow-up was stressed and encouraged. The patient voiced understanding of the plan, indications to return, and the need for follow-up. Exam findings show no acute concerns or changes Patient is appropriate for outpatient treatment and follow-up. Differential Diagnosis Differential diagnosis: Likely benign paroxysmal positional vertigo, vertebral basilar insufficiency, cerebrovascular accident, acute vestibular neuronitis, transient cerebral ischemia and other (Meniere's disease) Medical Records Attestation: I reviewed the patient's medical records. Discharge Plan Discharge Clinical Impression: Dizziness Patient Disposition: Home, Self-Care Condition: Stable Instructions: Dizziness (ED) Additional Instructions: Your neurological exam was reassuring today as there are no changes in strength or sensation in your face or extremities. Rest at home and take meclizine daily. Go to the Emergency Department for further evaluation if you have any headache, chest pain, or persistence of the dizzy spells. See your own physician in 3 days for reevaluation and to see if there is improvements. You may need additional lab work or imaging to determine the cause of your symptoms. Patient Language: Ukrainian Prescriptions: New meclizine 25 mg tablet 25 mg PO BID 7 Days Qty: 14 0RF No Action Centrum Silver Women 8 mg iron-400 mcg-300 mcg tablet 1 tablet PO DAILY glucosamine sulfate [Glucosamine] 500 mg Tablet 500 mg PO HS calcium carbonate-vitamin D3 600 mg-5 mcg (200 unit) Tablet 1 tablet PO DAILY celecoxib [Celebrex] 200 mg capsule 200 mg PO DAILY Qty: 90 1RF lisinopril 20 mg tablet 20 mg PO HS Qty: 90 1RF simvastatin 40 mg tablet 40 mg PO HS Qty: 90 3RF Prolia 60 mg/mL syringe 60 mg subcut [id number] Qty: 1 0RF alprazolam 0.25 mg tablet 0.75 mg PO TID PRN (Reason: anxiety) Qty: 270 0RF Follow-up/Referrals: Adelaida Hedrick MD [Primary Care Provider] - 3 Days Time of Disposition: 12:17
== END 2024-10-08 12:20 | disposition home or self-care (01) ==
PROVIDERS: Emergency Provider Nurse Practitioner Family; PCP Family Medicine
DX: R42 Dizziness and giddiness (principal); R73.03 Prediabetes; E78.00 Pure hypercholesterolemia, unspecified; I10 Essential (primary) hypertension; E78.5 Hyperlipidemia, unspecified; M19.90 Unspecified osteoarthritis, unspecified site; M81.0 Age-related osteoporosis without current pathological fracture; M85.80 Other specified disorders of bone density and structure, unspecified site
CPT/HCPCS: 99213; G0463

== ENCOUNTER 2025-03-05 07:48 | Outpatient (CLI) | payer MEDICARE, SELFPAY ==
[2025-03-05 08:32] LABS: Alanine Aminotransferase 24 U/L (6-35); Albumin Level 4.2 g/dL (3.5-5.1); Alkaline Phosphatase 39 U/L (38-126); Anion Gap 7 mmol/L (4-12); Aspartate Amino Transferase 30 U/L (14-36); Bilirubin,Total 0.5 mg/dL (0.2-1.3); Blood Urea Nitrogen 23 mg/dL (7-17); Calcium 9.2 mg/dL (8.4-10.2); Carbon Dioxide 24 mmol/L (22-30); Chloride 109 mmol/L (98-107); Cholesterol 167 mg/dL (0-200); Estimated Glomerular Filt Rate > 60; Glucose 112 mg/dL (65-110); HDL Direct 67 mg/dL; Potassium 4.2 mmol/L (3.4-5.0); Sodium 140 mmol/L (137-145); Triglycerides 159 mg/dL (<150)
[2025-03-05 08:43] LABS: LDL Cholesterol Direct 62 mg/dL
[2025-03-05 08:54] LABS: Vitamin D 25 Hydroxy 47.2 ng/mL
[2025-03-05 12:08] LABS: Hemoglobin A1C 5.7 % (<5.7)
== END 2025-03-05 07:49 | disposition home or self-care (01) ==
LOC: ANHLAB 07:49
PROVIDERS: PCP Family Medicine; Visit Provider Family Medicine
DX: E55.9 Vitamin D deficiency, unspecified (principal); R73.03 Prediabetes; E78.2 Mixed hyperlipidemia
CPT/HCPCS: 36415; 80053; 80061; 82306; 83036

== ENCOUNTER 2025-08-07 12:55 | Outpatient (CLI) | payer MEDICARE, SELFPAY ==
--- NOTE | ~2025-08-07 | DEXA_ITS ---
Bone Density Report Name: CRISSY CARNEY Age: 79 Sex: Female Ethnicity: White Date of : 1945 Indication: osteopenia; Referring Provider: SLOANE GLYNN Study: Bone densitometry was performed. Exam Date: August 07, 2025 Accession number: [id number] Bone Density: Region BMD T-score Z-score Classification AP Spine(L1-L4) 1.063 0.1 2.9 Normal Femoral Neck (Left) 0.500 -3.1 -0.8 Osteoporosis Total Hip (Left) 0.847 -0.8 1.4 Normal Femoral Neck (Right) 0.595 -2.3 0.1 Osteopenia Total Hip (Right) 0.800 -1.2 1.0 Osteopenia Total Hip Mean 0.823 -1.0 1.2 Normal World Health Organization criteria for BMD impression classify patients as: Normal (T-score at or above -1.0), Osteopenia (T-score between -1.0 and -2.5), or Osteoporosis (T-score at or below -2.5). 10-year Fracture Risk: FRAX not reported because: Some T-score for Spine Total or Hip Total or Femoral Neck at or below -2.5 Previous Exams: Region Exam Age BMD T-score BMD Change BMD Change Date g/cm2 vs Baseline vs Previous AP Spine (L1-L4) 08/07/2025 79 1.063 0.1 0.155 (17.1%)* 0.088 (9.1%)* 05/22/2022 76 0.975 -0.7 0.067 (7.4%)* 0.010 (1.1%) 12/28/2018 73 0.964 -0.8 0.057 (6.3%)* 0.057 (6.3%)* 10/30/2015 69 0.908 -1.3 Total Hip(Left) 08/07/2025 79 0.847 -0.8 0.065 (8.3%)* 0.023 (2.8%) 05/22/2022 76 0.823 -1.0 0.042 (5.3%)* 0.010 (1.3%) 12/28/2018 73 0.813 -1.1 0.031 (4.0%)* 0.031 (4.0%)* 10/30/2015 69 0.782 -1.3 Total Hip(Right) 08/07/2025 79 0.800 -1.2 0.055 (7.5%)* 0.057 (7.7%)* 05/22/2022 76 0.743 -1.6 -0.002 (-0.2%) -0.017 (-2.3%) 12/28/2018 73 0.760 -1.5 0.016 (2.1%) 0.016 (2.1%) 10/30/2015 69 0.744 -1.6 *Denotes significance at 95% confidence level, LSC for AP Spine = 0.022 g/cm2, LSC for Total Hip = 0.027 g/cm2 Impression: The patient has osteoporosis, based on the Left Femoral Neck T-score. No significant bone loss was observed. Discussion: INCREASED RISK OF FRACTURE. BONE DENSITY IS UNDESIRABLY LOW AT ONE OR MORE SKELETAL SITES, CONSISTENT WITH POSTMENOPAUSAL OSTEOPOROSIS. This patient's lowest T-score meets the World Health Organization's (WHO) criteria for osteoporosis at one or more sites (T-score -2.5 or below). In untreated patients, the risk of osteoporotic fracture increases approximately two-fold for each 1.0 SD decrease in T-score. Low bone density is not the only risk factor for fracture; also consider factors such as patient's age, frailty or poor health, risk of falling, risk of injury, previous osteoporotic fracture, family history of osteoporosis, cigarette smoking, low body weight, etc. Not everyone with low bone mineral density has osteoporosis; osteomalacia and other metabolic bone disorders should also be considered. Patients who have osteoporosis should be evaluated for specific diseases and conditions (secondary causes) that may cause or contribute to bone loss. The [place] Association [employer] Clinical Endocrinologists (AACE) and National Osteoporosis Foundation (NOF) recommend pharmacologic intervention for all postmenopausal women whose T-score is in this range. The patient should follow a healthful lifestyle (good nutrition with adequate calcium and vitamin D, and appropriate weight-bearing exercise). Follow-Up: Consider a repeat BMD and Vertebral Fracture Assessment (VFA) exam in 2 years or sooner if medically necessary, to reassess this patient's status. Reported by: MARIOLA on 08/07/2025 1:45:00 PM. Reviewed, dictated and finalized at location A.
== END 2025-08-07 12:56 | disposition home or self-care (01) ==
PROVIDERS: PCP Family Medicine; Visit Provider Internal Medicine Endocrinology, Diabetes & Metabolism
DX: M81.0 Age-related osteoporosis without current pathological fracture (principal); M85.851 Other specified disorders of bone density and structure, right thigh
CPT/HCPCS: 77080

== ENCOUNTER 2025-09-03 08:46 | Outpatient (CLI) | payer MEDICARE, SELFPAY ==
--- NOTE | ~2025-09-03 | MR_ITS ---
EXAMINATION: MR lumbar spine wo con DATE: 09/03/2025 09:17 INDICATION: Lumbar spinal stenosis with chronic low back pain radiating to the left leg with numbness and tingling. TECHNIQUE: Magnetic resonance imaging (MRI) of the lumbar spine was performed without intravenous contrast. Sequences included sagittal T2-weighted FSE, sagittal T2-weighted FS FSE, sagittal T1-weighted FSE, and axial T2-weighted FSE. COMPARISON: None FINDINGS: Alignment is normal. Vertebral body heights are normal. There are T1 hyperintense hemangiomas at L2 and S1. Marrow signal is otherwise normal. Moderate disc height loss at L1-L2 and mild disc height loss at L2-L3 through L5-S1. The conus medullaris terminates at T12-L1. There is normal signal in the caudal spinal cord. Paravertebral soft tissues are unremarkable. The following disc levels are specifically discussed: T12-L1: The disc does not extend beyond the endplate margin. There is moderate left and severe right facet joint osteoarthritis. There is no neural foraminal stenosis. There is no central canal stenosis. L1-L2: Disc is bulging with annular fissure. There is mild left and moderate right facet joint osteoarthritis. There is mild bilateral neural foraminal stenosis. There is mild central canal stenosis. L2-L3: Disc is bulging with annular fissure. There is hypertrophy of the ligamentum flavum. There is mild left and moderate right facet joint osteoarthritis. There is mild bilateral neural foraminal stenosis. There is mild central canal stenosis. L3-L4: Disc is bulging with annular fissure. There is hypertrophy of the ligamentum flavum. There is moderate left and severe right facet joint osteoarthritis. There is mild left and and mild to moderate right neural foraminal stenosis. There is moderate central canal stenosis. L4-L5: Disc is minimally bulging with bilateral foraminal zone annular fissures. There is hypertrophy of the ligamentum flavum. There is severe bilateral facet joint osteoarthritis. There is mild left and minimal right neural foraminal stenosis. There is mild central canal stenosis. L5-S1: The disc does not extend beyond the endplate margin. There is moderate left and severe right facet joint osteoarthritis. There is no neural foraminal stenosis. There is no central canal stenosis. IMPRESSION: 1. Mild to moderate lumbar spondylosis most notable for moderate central canal stenosis at L3-L4 Reviewed, dictated and finalized at location A. [facility] LANGUAGE PATHOLOGIST ASSISTANT
== END 2025-09-03 08:47 | disposition home or self-care (01) ==
LOC: MICIMG 08:47
PROVIDERS: PCP Student in an Organized Health Care Education/Training Program; Visit Provider Orthopaedic Surgery
DX: M48.062 Spinal stenosis, lumbar region with neurogenic claudication (principal); M47.896 Other spondylosis, lumbar region
CPT/HCPCS: 72148

== ENCOUNTER 2025-09-13 14:48 | Observation (INO) | payer MEDICARE, SELFPAY ==
[2025-09-13] VITALS (15 sets, daily range): BP systolic 157–205; BP diastolic 68–102; PULSE 66–78; RESP 12–20; TEMP 36.2–36.4; O2SAT 97–100; BMI 35.0
--- NOTE | ~2025-09-13 | XR_ITS ---
EXAMINATION: XR chest 1V portable 09/13/2025 15:42 INDICATION: Weakness PROCEDURE: AP portable chest COMPARISON: No prior studies for comparison. FINDINGS: The lungs are clear. Cardiomegaly. 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 There are no pleural effusions. There is no pneumothorax suspected. IMPRESSION: 1: NO ACUTE CARDIOPULMONARY DISEASE. Reviewed, dictated and finalized at location O. UCT OPERATIONS ASSOCIATE
--- NOTE | ~2025-09-13 | MR_ITS ---
EXAMINATION: MR brain/brain stem wo/w con DATE: 09/14/2025 11:51 INDICATION: Transient ischemic episode presenting with dysarthria and expressive aphasia TECHNIQUE: Magnetic resonance imaging (MRI) of the brain and brainstem was performed without and with 17 mL Multihance intravenous contrast. Sequences included sagittal and axial T1-weighted SE, axial diffusion-weighted FS SE, axial 3D SWAN, axial T2-weighted FLAIR, and axial T2-weighted FSE. Postcontrast axial and coronal T1-weighted SE was obtained. Apparent diffusion coefficient (ADC) maps were created. COMPARISON: Head CT and CT angiogram dated 09/13/2025 and brain MR dated 08/31/2018 FINDINGS: There are no areas of restricted diffusion to suggest acute infarction. No intracranial hemorrhage or abnormal intracranial mass lesion. There are no intraparenchymal signal abnormalities seen on the other pulse sequences. The ventricles are symmetric and normal in size. There are no abnormal extra-axial fluid collections. Flow voids are seen in the cerebral arteries on the T2- weighted sequences consistent with their expected patency. Changes of bilateral intraocular lens replacement. Visualized orbits and soft tissues are unremarkable. There are no areas of abnormal enhancement on the post contrast images. Prominent hyperostosis frontalis. IMPRESSION: 1. Normal brain. No acute intracranial process or abnormally enhancing brain lesions. Reviewed, dictated and finalized at location A. CIL ON AGING DIRECTOR IMPRESSION: 1. Normal brain. No acute intracranial process or abnormally enhancing brain le sions.
--- NOTE | ~2025-09-13 | CT_ITS ---
EXAMINATION: CTA brain carotid DATE: 09/13/2025 15:35 CONCRETING SUPERVISOR INDICATION: Speech difficulty TECHNIQUE: Computed tomographic angiography (CTA) of the head was performed without and with 100 mL Omnipaque-350 intravenous contrast. CTA of the neck was performed with intravenous contrast. The dose-length product was 991.67 mGy-cm. Maximum intensity projection and volume rendered 3D-reconstructions were created by the technologist on a separate workstation. COMPARISON: CT brain dated 09/13/2025. FINDINGS: HEAD CTA: The internal carotid arteries within normal limits. The anterior, middle and posterior cerebral arteries are within normal limits. No significant atherosclerotic change. No significant stenosis, occlusion or aneurysm. There are codominant vertebral arteries. No vascular anomalies. NECK CTA: The origin of the common carotid and vertebral arteries are widely patent. No significant stenosis, dissection or occlusion. Normal in course and caliber throughout. There are patchy groundglass opacities in the lung apices. There is 0% stenosis of the proximal right internal carotid artery relative to normal distal artery lumen diameter (NASCET criteria). There is 0% stenosis of the proximal left internal carotid artery relative to normal distal artery lumen diameter. IMPRESSION: 1.: Unremarkable CT angiogram of the head and neck. 2: Patchy groundglass opacities of the lung apices, differential diagnosis in order of likelihood include atypical or viral infection, hypersensitivity pneumonitis, smoking-related lung disease and pulmonary edema. Reviewed, dictated and finalized at location O. RETING SUPERVISOR IMPRESSION: 1.: Unremarkable CT angiogram of the head and neck. 2: Patchy groundglass opacities of the lung apices, differential diagnosis in order of likelihood include atypical or viral infection, hypersensitivity pneum onitis, smoking-related lung disease and pulmonary edema.
--- NOTE | ~2025-09-13 | CT_ITS ---
EXAMINATION: CT BRAIN W/O DATE: 09/13/2025 15:06 INDICATION: Weakness and slurred speech TECHNIQUE: Computed tomography (CT) of the head was performed without intravenous contrast. The dose-length product was 529.67 mGy-cm. Automated exposure control and iterative reconstruction technique were employed. COMPARISON: No prior studies for comparison. FINDINGS: Normal brain parenchymal volume for age. Normal lino-white differentiation. No acute intracranial hemorrhage, infarction, mass or mass effect. No ventriculomegaly or midline shift. Midline sagittal images demonstrate a normal corpus callosum, craniovertebral junction and sella turcica. Basilar cisterns are patent. Paranasal sinuses and mastoids are pneumatized. No depressed skull fractures. IMPRESSION: 1. No acute intracranial abnormality. As per stroke protocol, I called these results to emergency room, discussed with Dr. Ramy So MD at 09/13/2025 15:15 RIVERBOAT MASTER. Reviewed, dictated and finalized at location O. RBOAT MASTER IMPRESSION: 1. No acute intracranial abnormality. As per stroke protocol, I called these results to emergency room, discussed wit h Dr. Ramy So MD at 09/13/2025 15:15 RIVERBOAT MASTER.
--- NOTE | 2025-09-13 14:56 | ECG_ITS ---
Test Date: 2025-09-13 15:19:29 Measurements Intervals [place] Rate: 72 P: 15 FL: 225 QRS: -2 QRSD: 95 T: 66 QT: 383 QTc: 422 Interpretive Statements SINUS RHYTHM WITH FIRST DEGREE AV BLOCK BASELINE ARTIFACT- I, II, III, AVR, AVL, AVF BORDERLINE ECG No previous ECG available for comparison Electronically Signed On 09-13-2025 16:38:38 CHILD CARE LEAD TEACHER by Viral Burciaga D.O.
[2025-09-13 15:12] LABS: Estimated Glomerular Filt Rate 48
[2025-09-13 15:17] LABS: Hematocrit 39.7 % (37.0-47.0); Hemoglobin 13.1 g/dL (12.0-15.0); Immature Granulocyte Percent A 0.4 % (0-0.5); Lymphocytes Absolute Auto 1.70 K/mm3 (0.9-3.2); Mean Corpuscular HGB Conc 33.0 g/dl (32-36); Mean Corpuscular Hemoglobin 28.7 pg (26-34); Mean Corpuscular Volume 86.9 fl (80-100); Nucleated Red Blood Cells Absolute Auto 0.000 K/mm3 (0.0-0.012); Nucleated Red Blood Cells Perc 0.0 % (0.0-0.2); Platelet Count Result 256 k/mm3 (150-375); Red Blood Count 4.57 M/mm3 (4.2-5.4); White Blood Count 7.0 K/mm3 (4.5-10.0)
[2025-09-13 15:29] LABS: INR 1.0; Partial Thromboplastin Time 30.5 Seconds (22.3-36.8); Prothrombin Time 12.9 Seconds (11.1-14.7)
[2025-09-13 15:31] LABS: Alanine Aminotransferase 26 U/L (6-35); Albumin Level 4.5 g/dL (3.5-5.1); Alkaline Phosphatase 48 U/L (38-126); Anion Gap 9 mmol/L (4-12); Aspartate Amino Transferase 44 U/L (14-36); Bilirubin,Total 0.6 mg/dL (0.2-1.3); Blood Urea Nitrogen 21 mg/dL (7-17); Calcium 10.1 mg/dL (8.4-10.2); Carbon Dioxide 25 mmol/L (22-30); Chloride 104 mmol/L (98-107); Estimated CRCL calculation 38 ml/min; Estimated Glomerular Filt Rate 51; Glucose 89 mg/dL (65-110); Potassium 4.6 mmol/L (3.4-5.0); Sodium 138 mmol/L (137-145); Total Protein 7.7 g/dL (6.3-8.2)
[2025-09-13 15:44] LABS: Troponin I < 0.012 ng/mL (0.000-0.034)
[2025-09-13 16:38] LABS: Add Urine Microscopic? NO; Appearance Urine Clear (Clear); Glucose Urine UA Negative (Negative); Leukocyte Esterase Ur Negative LEU/UL (Negative); Nitrate Urine Negative (Negative); Specific Grav Ur > 1.045 (1.001-1.035)
--- NOTE | 2025-09-13 16:56 | ED_ITS ---
HPI - Neuro Symptoms/Deficit General Chief Complaint: Suspected CVA Stated Complaint: SPEECH DIFFICULTY SINCE 1400 WEAKNESS Time Seen by Provider: 09/13/25 14:57 History of Present Illness HPI Narrative: Patient is an 79-year-old female who presents ER with reports of difficulty finding words to speak starting around 2:00 p.m.. Lasted for about 30 minutes. Has no difficulty finding words at this time and has no slurred speech. She reports after this episode she just felt generally weak. There were no witnesses the episode. She was in her home trying to speak to Dinora and was having trouble getting out which she was trying to say to her Internet device. No history of CVA. She is not on any blood thinning agents. Related Data Home Medications ?Medication ?Instructions ?Recorded ?Confirmed ?Last Taken ?Type glucosamine sulfate 500 mg tablet 500 mg PO HS 0 09/05/25 Unknown History (Glucosamine) cifvocwn-hgey-ugon 8 mg-folic 400 1 tablet PO DAILY 09/05/25 Unknown History mcg-K 50 mcg-lutein 300 mcg tablet (Centrum Silver Women) calcium 600 mg (as 1 tablet PO DAILY 01/02/22 1 11/06/24 Unknown History carbonate)-vitamin D3 5 mcg (200 unit) tablet Allergies Allergy/AdvReac Type Severity Reaction Status Date / Time wool AdvReac Intermediate Itching Verified 09/13/25 14:50 Anesthetics - Amide Type - AdvReac Unknown Unknown Verified 09/13/25 14:50 Select A [facility] Past Medical History Medical History Prediabetes Osteopenia Drug dependence Nausea & vomiting Coughing Chest tightness Bleeding nose Fever History of adverse reaction to anesthesia Knee effusion, right Degenerative joint disease of knee Right knee pain Fatigue Anemia Elevated glucose High cholesterol Hypertension Generalized weakness Headache Osteoarthritis Anxiety Insomnia Chronic SI joint pain Sciatic leg pain Left hip pain Hyperlipidemia Hypertension Anxiety Osteoporosis Surgical History Surgical History History of foot surgery H/O breast implant History of facelift 2009 History of appendectomy H/O breast augmentation 1970 S/P appendectomy Family History Family History Son Acute myocardial infarction Father Acute myocardial infarction Mother Cerebrovascular accident Son Pulmonary emboli Mother Suicide Father Diabetes mellitus Heart disease Cancer Unspecified type/location Son Malignant neoplasm of prostate Mother Hypertension Family history of elevated blood lipids Cerebrovascular accident, Onset Age: 82 Father Family history of heart disease in male family member before age 55 Hypertension Patient's father is , Onset Age: 78 Grandparent Cerebrovascular accident Other Family history of cardiovascular disease Family history of malignant neoplasm Social History Social History Social History: The patient is . She had 2 sons and her 1 son Christian from a pulmonary emboli. Her ex- is now . 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 Pantera Mejias is her only son that is living and he is the durable power disability attorney for healthcare. The patient is a lifelong nonsmoker. She said she tried marijuana twice in her life. Otherwise she does not use any illicit drugs. Code status full code Smoking status: Never smoker Second hand tobacco smoke exposure: No Alcohol intake: current Drinks per week: 2 Alcohol use details: 1 glass of wine per month Substance use: never Substance use type: does not use Current Housing: Decline to Answer Concerned About Future Housing: Decline to Answer Difficulty Paying Gas/Electric Bills: Decline to Answer Difficulty Paying for Meds: Decline to Answer Currently Unemployed: Decline to Answer Education: Decline to Answer Difficulty w/ Childcare or Family Care: Decline to Answer Living arrangements: alone Occupation/Education: retired Gender identity (if verbalized by the patient): Female Spiritual care concerns: No Agree to blood products: Yes Exam 2 Narrative: GENERAL: Well-appearing, well-nourished, and in no acute distress. HEAD: Normocephalic, atraumatic. EYES: PERRL and EOMI. ENT: Mucous membranes moist. CHEST: Clear to auscultation. No respiratory distress. HEART: Regular rate and rhythm. Normal peripheral pulses. ABDOMEN: Soft, nontender, nondistended. EXTREMITIES: Normal range of motion. No edema. SKIN: Warm, dry, no rash. NEURO: Alert and oriented x3. NIH stroke scale of 0. No upper/lower extremity drift, no dysarthria/aphasia, no facial droop. PSYCH: Normal mood and affect. Course Course Emergency Course: Discussed with Dr. Quiroga. Recommends aspirin and plavix now. Obtain cholesterol level in the morning, and call him with the MRI results tomorrow. On labs patient appears like she may be a little dry as creatinine is elevated to 1.03 from 0.7 and she has an elevated specific gravity in her urine. She is receiving 1 L IV fluid here. Her NIH stroke scale continues to be 0. Vital Signs Vital signs: Vital Signs Temperature 97.6 F 09/13/25 15:13 Pulse Rate 77 09/13/25 15:13 Respiratory Rate 17 09/13/25 15:13 Blood Pressure 178/71 H 09/13/25 15:13 Pulse Oximetry 97 09/13/25 15:13 Oxygen Delivery Room Air 09/13/25 15:13 Temperature 97.6 F 09/13/25 15:13 Pulse Rate 72 09/13/25 15:31 Respiratory Rate 15 09/13/25 15:31 Blood Pressure 178/100 H 09/13/25 16:56 Pulse Oximetry 97 09/13/25 15:31 Oxygen Delivery Room Air 09/13/25 15:13 [facility] Differential Diagnosis Differential Diagnosis: TIA, CVA, dehydration, viral illness, sepsis, hypertensive emergency Medical Records I have reviewed the following patient records and this information was taken into consideration when formulating the assessment and plan.: previous labs Lab Data [facility] Lab Attestation statement: I personally reviewed the patient's lab results. 09/13/25 15:12 09/13/25 15:12 Labs: Lab Results 09/13/25 09/13/25 09/13/25 Range/Units 14:55 15:05 15:12 WBC 7.0 (4.5-10.0) K/mm3 RBC 4.57 (4.2-5.4) M/mm3 Hgb 13.1 (12.0-15.0) g/dL Hct 39.7 (37.0-47.0) % MCV 86.9 (80-100) fl MCH 28.7 (26-34) pg MCHC 33.0 (32-36) g/dl RDW 13.2 (11.5-14.5) % Plt Count 256 (150-375) k/mm3 MPV 10.2 (7.4-10.4) fl Immature Gran % (Auto) 0.4 (0-0.5) % Neut % (Auto) 60.1 (45.5-73.1) % Lymph % (Auto) 24.5 (18.3-44.2) % [place] % (Auto) 11.1 H (2.6-8.5) % Eos % (Auto) 3.5 (0-4.4) % Baso % (Auto) 0.4 (0.2-1.2) % Lymph # (Auto) 1.70 (0.9-3.2) K/mm3 [place] # (Auto) 0.8 H (0.1-0.6) K/mm3 Eos # (Auto) 0.2 (0-0.3) K/mm3 Baso # (Auto) 0.0 (0.0-0.1) K/mm3 Abs Immat Gran (auto) 0.03 (0.00-0.031) K/mm3 Absolute Neuts (auto) 4.2 (1.3-6.7) K/mm3 Absolute Nucleated RBC 0.000 (0.0-0.012) K/mm3 Nucleated RBC % 0.0 (0.0-0.2) % PT 12.9 (11.1-14.7) Seconds INR 1.0 APTT 30.5 (22.3-36.8) Seconds Sodium 138 (137-145) mmol/L Potassium 4.6 (3.4-5.0) mmol/L Chloride 104 (98-107) mmol/L Carbon Dioxide 25 (22-30) mmol/L Anion Gap 9 (4-12) mmol/L BUN 21 H (7-17) mg/dL Creatinine 1.10 1.03 H (0.7-1.2) mg/dL Estim Creat Clear Calc Not Reportable 38 Estimated GFR 48 L 51 L (59 - ) Glucose 89 (65-110) mg/dL POC Capillary Glucose 105 (65-105) mg/dl Calcium 10.1 (8.4-10.2) mg/dL Total Bilirubin 0.6 (0.2-1.3) mg/dL AST 44 H (14-36) U/L ALT 26 (6-35) U/L Alkaline Phosphatase 48 (38-126) U/L Troponin I < 0.012 (0.000-0.034) ng/mL Total Protein 7.7 (6.3-8.2) g/dL Albumin 4.5 (3.5-5.1) g/dL Urine Color (Yellow) Urine Appearance (Clear) Urine pH (5.0-9.0) Ur Specific [place] (1.001-1.035) Urine Protein (Negative) mg/dL Urine Glucose (UA) (Negative) mg/dL Urine Ketones (Negative) mg/dL Ur Blood (Man) (Negative) Urine Nitrate (Negative) Urine Bilirubin (Negative) Urine Urobilinogen (<2.0) mg/dL Leukocyte Esterase Rfl (Negative) SARY/UL Influenza A (RT-PCR) (Negative) Influenza B (RT-PCR) (Negative) RSV (RT-PCR) (Negative) SARS-CoV-2 RNA (RT-PCR) (Negative) 09/13/25 09/13/25 Range/Units 16:32 16:39 WBC (4.5-10.0) K/mm3 RBC (4.2-5.4) M/mm3 Hgb (12.0-15.0) g/dL Hct (37.0-47.0) % MCV (80-100) fl MCH (26-34) pg MCHC (32-36) g/dl RDW (11.5-14.5) % Plt Count (150-375) k/mm3 MPV (7.4-10.4) fl Immature Gran % (Auto) (0-0.5) % Neut % (Auto) (45.5-73.1) % Lymph % (Auto) (18.3-44.2) % Lincoln % (Auto) (2.6-8.5) % Eos % (Auto) (0-4.4) % Baso % (Auto) (0.2-1.2) % Lymph # (Auto) (0.9-3.2) K/mm3 [place] # (Auto) (0.1-0.6) K/mm3 Eos # (Auto) (0-0.3) K/mm3 Baso # (Auto) (0.0-0.1) K/mm3 Abs Immat Gran (auto) (0.00-0.031) K/mm3 Absolute Neuts (auto) (1.3-6.7) K/mm3 Absolute Nucleated RBC (0.0-0.012) K/mm3 Nucleated RBC % (0.0-0.2) % PT (11.1-14.7) Seconds INR APTT (22.3-36.8) Seconds Sodium (137-145) mmol/L Potassium (3.4-5.0) mmol/L Chloride (98-107) mmol/L Carbon Dioxide (22-30) mmol/L Anion Gap (4-12) mmol/L BUN (7-17) mg/dL Creatinine (0.7-1.2) mg/dL Estim Creat Clear Calc Estimated GFR (59 - ) Glucose (65-110) mg/dL POC Capillary Glucose (65-105) mg/dl Calcium (8.4-10.2) mg/dL Total Bilirubin (0.2-1.3) mg/dL AST (14-36) U/L ALT (6-35) U/L Alkaline Phosphatase (38-126) U/L Troponin I (0.000-0.034) ng/mL Total Protein (6.3-8.2) g/dL Albumin (3.5-5.1) g/dL Urine Color Yellow (Yellow) Urine Appearance Clear (Clear) Urine pH 6.0 (5.0-9.0) Ur Specific [place] > 1.045 H (1.001-1.035) Urine Protein Negative (Negative) mg/dL Urine Glucose (UA) Negative (Negative) mg/dL Urine Ketones Negative (Negative) mg/dL Ur Blood (Man) Negative (Negative) Urine Nitrate Negative (Negative) Urine Bilirubin Negative (Negative) Urine Urobilinogen 0.2 (<2.0) mg/dL Leukocyte Esterase Rfl Negative (Negative) SARY/UL Influenza A (RT-PCR) Negative (Negative) Influenza B (RT-PCR) Negative (Negative) RSV (RT-PCR) Negative (Negative) SARS-CoV-2 RNA (RT-PCR) Negative (Negative) Imaging Data Radiologist's impression: ITS Impressions Head CT 09/13/25 15:13 IMPRESSION: 1. No acute intracranial abnormality. As per stroke protocol, I called these results to emergency room, discussed with Dr. Ramy So MD at 09/13/2025 15:15 CAFETERIA TABLE ATTENDANT. Head/Neck CTA 09/13/25 15:34 IMPRESSION: 1.: Unremarkable CT angiogram of the head and neck. 2: Patchy groundglass opacities of the lung apices, differential diagnosis in order of likelihood include atypical or viral infection, hypersensitivity pneumonitis, smoking-related lung disease and pulmonary edema. Chest X-Ray 09/13/25 16:03 IMPRESSION: 1: NO ACUTE CARDIOPULMONARY DISEASE. ECG Data EKG #1: ECG completion date: 09/13/25 ECG completion time: 15:19 normal rate (72), sinus rhythm, no ectopy, no ST changes, normal QRS and normal QT Discharge Plan Discharge Clinical Impression: Brain TIA Patient Disposition: Still a Patient Condition: Stable Patient Language: Thai Prescriptions: No Action Centrum Silver Women 8 mg iron-400 mcg-300 mcg tablet 1 tablet PO DAILY Evenity 210mg/2.34mL ( 105mg/1.17mLx2) syringe 210 mg subcut MONTHLY 30 Days Qty: 2.34 0RF glucosamine sulfate [Glucosamine] 500 mg Tablet 500 mg PO HS calcium carbonate-vitamin D3 600 mg-5 mcg (200 unit) Tablet 1 tablet PO DAILY lisinopril 20 mg tablet 20 mg PO HS Qty: 90 3RF alprazolam 0.25 mg tablet 0.75 mg PO TID PRN (Reason: anxiety) Qty: 270 0RF alendronate [Fosamax] 70 mg tablet 70 mg PO WEEKLY 90 Days Qty: 13 2RF celecoxib [Celebrex] 200 mg capsule 200 mg PO DAILY Qty: 90 1RF simvastatin 40 mg tablet 40 mg PO HS Qty: 90 3RF Follow-up/Referrals: PHYSICIAN,INCOME TAX ADMINISTRATOR [Primary Care Provider, Internal Medicine] Quality Stroke Scale Stroke Scale 1: Stroke scale date:: 09/13/25 Stroke scale time:: 14:57 1a Level of consciousness: alert-0 1b Level of consciousness questions: answers both correctly-0 1c Level of consciousness commands: obeys both correctly-0 2 Best gaze: normal-0 3 Visual: no visual loss-0 4 Facial palsy: normal-0 5a Motor: left arm: no drift-0 5b Motor: right arm: no drift-0 6a Motor: left leg: no drift-0 6b Motor: right leg: no drift-0 7 Limb ataxia: absent-0 8 Sensory: normal-0 9 Best language: no aphasia-0 10 Dysarthria: normal-0 11 Extinction and inattention: no abnormality-0 Level:: 0
[2025-09-13] MEDS: SODIUM CHLORIDE 0.9% IV 1,000 ML 999 ML IV CONT (17:11)
[2025-09-13 17:19] LABS: Influenza A QL RT-PCR Negative (Negative); Influenza B QL RT-PCR Negative (Negative); RSV RNA, RT-PCR Negative (Negative); SARS-CoV-2 RNA PCR Negative (Negative)
[2025-09-13] MEDS: CLOPIDOGREL BISULFATE 75 MG TABLET PO (17:48)
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
--- NOTE | 2025-09-13 18:43 | WPCEDHO ---
ED Hand Off Checklist All vitals saved: yes IV Site documented: yes All med administrations documented: yes Triage Note Triage Note pt to ED with c/o speech changes 09/13/25 15:13 that started around 1400 today and generalized weakness. pt says she couldn't get the words out she wanted to say. pt says she couldn't think of the words to say or get them out. pt says this happened a long time ago that was part of a migraine. pt now says she can get her words out but just feels weak. pt is A&OX4 Allergies wool Adverse Reaction (Intermediate, Verified 09/13/25 14:50) Itching Anesthetics - Amide Type - Select A Adverse Reaction (Unknown, Verified 09/13/25 14:50) Unknown hypersensitive to all anesthesia -tolerates intra-articular lidocaine well. Family History (Last Reviewed 09/13/25 @ 18:07 by Shannen Butt, PRINT CUTTER) Son Acute myocardial infarction Father Acute myocardial infarction Mother Cerebrovascular accident Son Pulmonary emboli Mother Suicide Father Diabetes mellitus Heart disease Cancer Son Malignant neoplasm of prostate Mother Hypertension Family history of elevated blood lipids Cerebrovascular accident Father Family history of heart disease in male family member before age 55 Hypertension Patient's father is Grandparent Cerebrovascular accident Other Family history of cardiovascular disease Family history of malignant neoplasm Administered/Completed Medications Discontinued Medications Aspirin (Aspirin 81 Mg Chewable Tablet) 324 mg PO ONCE STA Stop: 09/13/25 17:35 Last Admin: 09/13/25 17:47 Dose: Not Given Documented By: DANELLE Non-Admin Reason: Patient Refuses Clopidogrel Bisulfate (Clopidogrel Bisulfate 75 Mg Tablet) 75 mg PO ONCE STA Stop: 09/13/25 17:35 Last Admin: 09/13/25 17:48 Dose: 75 mg Documented By: DANELLE Sodium Chloride (Normal Saline Iv) 1,000 mls @ 999 mls/hr IV CONT .Q1H1M STA Stop: 09/13/25 17:46 Last Admin: 09/13/25 17:11 Dose: 999 mls/hr Documented By: MATTIE Lisinopril (Lisinopril 20 Mg Tablet) 20 mg PO ONCE STA Stop: 09/13/25 17:52 Last Admin: 09/13/25 18:20 Dose: 20 mg Documented By: NIGEL Notes 09/13/25 17:54 Nurse Note by Marlin Alonso attempting to get pt blood pressure, machine in the room was not working, got a mobile vitals cart to take it and got a high reading, this RN told pt I will be getting a manual to check for BP accuracy. pt then looked at her and said can I shoot her this RN said to pt that's not funny pt then said I think it is this RN then said it's actually not funny when I'm just trying to do my job and take care of you Initialized on 09/13/25 17:54 - END OF NOTE Interventions/Assessments IV / Saline Lock, Insert Start: 09/13/25 14:56 Freq: STAT Status: Active Protocol: Document 09/13/25 15:22 KNW (Rec: 09/13/25 15:22 KNW [id number]) IV Assessment Peripheral Access Left Antecubital IV Catheter Access Initiated IV Insertion Date 09/13/25 IV Insertion Time 15:22 Catheter Gauge 20 IV Insertion 1 Attempts Ultrasound Used for No Placement IV Site Assessment WNL IV Care and WNL Maintenance PA: Neurological Assessment Start: 09/13/25 15:30 Freq: Status: Active Protocol: Document 09/13/25 15:30 KNW (Rec: 09/13/25 15:30 KNW [id number]) Neurological Assessment Level of Alert,Awake Consciousness Arousable to Verbal Orientation Oriented to Person,Oriented to Place,Oriented to Time Neurological Weakness, General Symptoms Behavior Appropriate,Cooperative Patient Able to Comprehend Comprehension Memory Description Intact Facial Symmetry Symmetrical Speech Pattern Clear Ability to Swallow Normal Tongue Position Midline Finger to Nose Test Normal Performance Heel to Menendez Test Normal Performance Bilateral Hand(s) Extremity Movement Normal Description All Extremities Sensation Normal Description Luis Coma Scale Eyes Open Verbal Oriented and Alert Motor Follows Commands [place] Coma Total 15 Score Last Vital Signs Temperature 97.6 F 09/13/25 15:13 Pulse Rate 70 09/13/25 18:23 Respiratory Rate 17 09/13/25 18:23 Pulse Oximetry 99 09/13/25 18:23 Blood Pressure 196/79 H 09/13/25 18:23 Blood Pressure Mean 118 09/13/25 18:23 Blood Pressure Position Sitting 09/13/25 18:23 Oxygen Delivery Room Air 09/13/25 15:13 Weight 84.2 kg 09/13/25 15:13 Last Result - Abnormals Only [place] % (Auto) 11.1 % (2.6-8.5) H 09/13/25 15:12 [place] # (Auto) 0.8 K/mm3 (0.1-0.6) H 09/13/25 15:12 BUN 21 mg/dL (7-17) H 09/13/25 15:12 Creatinine 1.03 mg/dL (0.7-1.0) H 09/13/25 15:12 Estimated GFR 51 (59-) L 09/13/25 15:12 AST 44 U/L (14-36) H 09/13/25 15:12 Ur Specific [place] > 1.045 (1.001-1.035) H 09/13/25 16:32 Most Recent Suicide Severity Rating Suicide Severity Rating NO RISK INDICATED 09/13/25 15:13
--- NOTE | 2025-09-13 20:53 | PC.NURSE ---
PATIENT ARRIVED ON UNIT AT 1904
[2025-09-13] MEDS: ALPRAZolam (*CRX) 0.25 MG TABLET 0.75 MG PO (21:40)
[2025-09-13] MEDS: SIMVASTATIN 20 MG TABLET 40 MG PO (21:41)
--- NOTE | 2025-09-14 | ECHO_ITS ---
Patient Info Name: Shannan Orona Age: 79 years : 1945 Gender: Female Ht: 60 in Wt: 179 lbs BSA: 1.89 m2 HR: 85 bpm BP: 150 / 58 mmHg Heart Rhythm: Sinus Rhythm Technical Quality: Good Exam Date: 09/14/2025 12:50 PM Patient Status: O Admit Date: 09/13/2025 Exam Type: CA echo doppler w bubble study Complete two-dimensional, color flow and Doppler transthoracic echocardiogram is performed with agitated saline. Staff Referring Physician: Ramy So MD Special Education Aide: Henrietta Marinelli Attending Provider: Justice Zayas Contrast/Agitated Saline Contrast/Ag. Saline: Agitated Saline Amount: 20.00 ml Existing IV Access: Yes IV Access Condition: patent with no signs of infiltration Summary 1. Normal left ventricular size, systolic function with grade 1 diastolic noncompliance. 2. Mitral annular calcium. 3. Mildly sclerotic aortic valve. 4. Agitated saline contrast injection demonstrates no evidence of intracardiac shunt. Left Ventricle Left ventricular chamber dimension is normal. Left ventricular systolic function is normal, estimated at 65-70. The left ventricular diastolic function is grade I diastolic dysfunction. Right Ventricle Right ventricular chamber dimension is normal. Left Atria Left atrial chamber dimension is normal. Right Atria Right atrial chamber dimension is normal. Atrial Septum Intact interatrial septum visualized by agitated saline imaging. Aortic Valve The aortic valve is trileaflet. There is mild aortic valve sclerosis. Pulmonic Valve The pulmonic valve is not well visualized. Mitral Valve The mitral valve has normal leaflets. The mitral valve annulus is mildly calcified. Tricuspid Valve The tricuspid valve leaflets are normal. Pericardium/Pleural The pericardium appears normal. Aorta The aortic root size at the sinus of Valsalva is normal. Left Ventricular Outflow Tract Name Value Normal LVOT 2D LVOT Diameter 2.0 cm LVOT Doppler LVOT Peak Velocity 84 cm/s LVOT Peak Gradient 3 mmHg LVOT Mean Gradient 2 mmHg LVOT VTI 21 cm LVOT VTI/AV VTI Ratio 0.4 LVOT Stroke Volume 65 ml LVOT CO 4.9 l/min LVOT CI 2.6 l/min/m2 Pulmonic Valve Name Value Normal RVOT Doppler RVOT Peak Velocity 76 cm/s RVOT Peak Gradient 2 mmHg PV Doppler PV Peak Velocity 92 cm/s PV Peak Gradient 3 mmHg Mitral Valve Name Value Normal MV Diastolic Function MV E Peak Velocity 96 cm/s MV A Peak Velocity 127 cm/s MV E/A 0.8 MV Decel Time (PW) 167 ms MV Annular TDI MV E/e' (Septal) 18.6 MV E/e' (Lateral) 18.8 MV E/e' (Average) 18.7 Tricuspid Valve Name Value Normal TV Regurgitation Doppler TR Peak Velocity 266 cm/s TR Peak Gradient 28 mmHg Estimated PAP/RSVP RA Pressure 10 mmHg <=5 PA Systolic Pressure 38 mmHg <36 RV Systolic Pressure 38 mmHg <36 TV Annular TDI TV Lateral Stacie s' Velocity 7.9 cm/s >=9.5 Aorta Name Value Normal Ascending Aorta Ao Root Diameter (MM) 3.3 cm Ao Root Diam Index (MM) 1.8 cm/m2 Aortic Valve Name Value Normal AV Doppler AV Peak Velocity 231 cm/s AV Peak Gradient 21 mmHg AV Mean Gradient 12 mmHg AV VTI 52 cm AV Area (Cont Eq VTI) 1.2 cm2 >=3.0 AV Area (Cont Eq Angelo) 1.1 cm2 AV DI (Angelo) 0.37 AV Regurgitation 2D LVOT Area 3.1 cm2 Ventricles Name Value Normal LV Dimensions 2D/MM IVS Diastolic Thickness (2D) 1.0 cm 0.6-1.0 LVID Diastole (2D) 5.2 cm 3.8-5.2 LVIW Diastolic Thickness (2D) 0.9 cm 0.6-0.9 LVID Systole (2D) 3.4 cm 2.2-3.5 LVOT Diameter 2.0 cm LV Mass (2D Cubed) 187.76 g 67.00-162.00 LV Mass Index (2D Cubed) 99 g/m2 43-95 Relative Wall Thickness (2D) 0.35 <=0.42 LV Fractional Shortening/Ejection Fraction 2D/MM LV Fractional Shortening (2D) 36 % 27-45 LV EF (2D Teichholz) 65 % LV Diastolic Volume (4C MOD) 41 ml LV EF (4C MOD) 74 % LV Diastolic Volume (2C MOD) 35 ml LV EF (2C MOD) 70 % LV Diastolic Volume (BP MOD) 39 ml 46-106 LV Diastolic Volume Index (BP MOD) 20 ml/m2 29-61 LV Systolic Volume (BP MOD) 11 ml 14-42 LV Systolic Volume Index (BP MOD) 6 ml/m2 8-24 LV EF (BP MOD) 73 % 54-74 LV Diastolic Length (4C) 7.0 cm LV Systolic Length (4C) 6.1 cm LV Stroke Volume (4C MOD) 31 ml Atria Name Value Normal LA Dimensions LA Dimension (MM) 3.7 cm 2.7-3.8 LA Volume (4C A-L) 52 ml LA Volume (BP A-L) 56 ml RA Dimensions RA Area (4C) 11.4 cm2 <=18.0 Report Signatures
[2025-09-14 04:38] VITALS: BP 150/58; PULSE 85; RESP 18; TEMP 36.5; O2SAT 95
[2025-09-14 05:40] LABS: Hemoglobin A1C 5.6 % (<5.7)
[2025-09-14 05:57] LABS: Cholesterol 151 mg/dL (0-200)
[2025-09-14 08:00] VITALS: PULSE 85; RESP 18; O2SAT 95
--- NOTE | 2025-09-14 09:10 | PM.IMPN2 ---
Assessment and Plan Assessment and Plan (1) Brain TIA: Code(s): G45.9 - Transient cerebral ischemic attack, unspecified Status: Acute Assessment and Plan: Transient word-finding difficulty that lasted for approximately 10 minutes discovered at 2:00 p.m. on 09/13. Last known well at 1:30 p.m. on 09/13. Head CT and head/neck CTA showed no significant findings or acute occlusion. Not candidate for thrombolytics or thrombectomy as the symptoms have resolved and there was no large vessel occlusion on imaging. No previously known history of CVA. 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 - admission for observation and telemetry - neurology consulted, Dr. Quiroga. Not available physically for consult tomorrow, however is okay with being called with MRI results and can discuss case via telephone and give further recommendations. - brain MRI w/wo ordered >> patient does have a history of claustrophobia, offered anxiolytic prior to imaging but patient declined ---MRI 1. Normal brain. No acute intracranial process or abnormally enhancing brain lesions. - echo w/Bubble ordered, pending - neuro checks Q4 - monitor daily labs, check lipid panel and A1C --Lipid panel WDL --A1c 5.6 - per Neurology recommendations to the ED provider, start aspirin and Plavix now. Patient started on Plavix 75 mg PO daily, home Celebrex held. Daily ASA 81 mg and simvastatin continue. Discussed with Dr. Quiroga that since MRI brain WDL, pt is OK to be discharged with continued ASA 81mg & Simvastatin if echo is WDL. Plavix can be discontinued then as well. Neuro f/u outpt needed. (2) Hypertension: Qualifiers: Hypertension type: primary hypertension Qualified Code(s): I10 - Essential (primary) hypertension Code(s): I10 - Essential (primary) hypertension Status: Chronic Assessment and Plan: - chronic, currently 150/58. Given home dose of lisinopril in the ED prior to admission. Hydralazine p.r.n. for BP greater than 180/90. - continue home medications: Lisinopril 20 mg HS - monitor (3) Hyperlipidemia: Qualifiers: Hyperlipidemia type: unspecified Qualified Code(s): E78.5 - Hyperlipidemia, unspecified Code(s): E78.5 - Hyperlipidemia, unspecified Status: Chronic Assessment and Plan: - updated lipid panel WDL - continue home simvastatin 40 mg daily (4) Anxiety: Code(s): F41.9 - Anxiety disorder, unspecified Status: Chronic Assessment and Plan: History of anxiety disorder with panic attacks. No current evidence of exacerbation. - continue home medication: Xanax 0.75 mg HS Plan Pending echo Diet: Heart healthy GI Prophylaxis: N/a DVT Prophylaxis: SCDs IV fluids: None Lines/Tubes: pIV Code Status: Full code Medical Record Review I have reviewed the following patient records and this information was taken into consideration when formulating the assessment and plan.: previous labs and previous hospitalizations Time Spent With Patient Time with patient: Greater than 35 minutes Subjective Date/time seen: 09/14/25 1408 Interval history: Pt lying in her bed upon my arrival. Pt denies JEAN BAPTISTE now and is wanting to go home. Neuro exam grossly WDL. Review of Systems Review of Systems: All systems reviewed & are unremarkable except as noted in HPI and below Exam Narrative: +[place] Const: General: comfortable and no acute distress Other: , female, elderly, nontoxic appearance HENMT: Face/Nose/Sinus: Normal nares present Mouth: Yes moist mucous membranes Eyes: General: appearance normal, both eyes and all related structures Sclera: sclerae normal Pupils: Equal, round and reactive pupils present EOM: EOMs intact bilaterally Resp: Effort & Inspection: normal respiratory effort Auscultation: clear to auscultation bilaterally Cardio: Rate: regular rate Rhythm: regular rhythm Other: S1-S2 present without murmur, rub, ectopy GI: Other: Abdomen soft, nondistended, nontender. Normoactive bowel sounds in all quadrants. Skin: General skin exam: normal color and no rashes or lesions noted Wounds: no wounds Neuro: Cranial nerves: Yes Equal, round and reactive pupils present Speech: normal speech Motor exam (neuro): 5/5 motor strength present throughout Sensory Exam: normal sensation Other: A&O x4, NIHSS 0 Extrem: General: normal to inspection Psych: Mental Status: mental status grossly normal Affect: normal affect Other: Good insight and judgment, pleasant Objective Data Vital Signs Vital Signs: Vital Signs - 24 hr 09/13/25 15:13 09/13/25 15:28 09/13/25 15:31 Temperature 97.6 F Pulse Rate 77 72 72 Respiratory Rate 17 13 15 Blood Pressure 178/71 H 178/71 H 178/71 H Pulse Oximetry 97 98 97 Oxygen Delivery Room Air 09/13/25 15:32 09/13/25 15:46 09/13/25 16:19 Temperature Pulse Rate 70 70 68 Respiratory Rate 15 16 14 Blood Pressure Pulse Oximetry 98 Oxygen Delivery 09/13/25 16:30 09/13/25 16:45 09/13/25 16:56 Temperature Pulse Rate 72 Respiratory Rate 12 Blood Pressure 178/100 H Pulse Oximetry 99 Oxygen Delivery 09/13/25 17:39 09/13/25 17:45 09/13/25 17:53 Temperature Pulse Rate 69 66 Respiratory Rate 19 18 Blood Pressure 205/102 H Pulse Oximetry 100 Oxygen Delivery 09/13/25 17:53 09/13/25 18:23 09/13/25 18:50 Temperature Pulse Rate 70 70 Respiratory Rate 17 20 Blood Pressure 180/100 H 196/79 H 205/84 H Pulse Oximetry 99 98 Oxygen Delivery 09/13/25 19:51 09/13/25 20:00 09/14/25 04:38 Temperature 97.2 F L 97.7 F Pulse Rate 78 85 Respiratory Rate 18 18 Blood Pressure 157/68 H 150/58 H Pulse Oximetry 100 95 Oxygen Delivery Room Air Intake/Output Intake/Output: Intake & Output 09/11/25 09/12/25 09/13/25 09/14/25 23:59 23:59 23:59 23:59 Intake Total 1000 900 Balance 1000 900 Meds/Results Medications: Active Medications Generic Name Dose Route Start Last Admin Trade Name Anthony PRN Reason Stop Dose Admin Acetaminophen 650 mg 09/13/25 17:53 Acetaminophen 325 Mg Tablet PO Q4H PRN Mild Pain (1-3) or Fever Hydrocodone Bitart/Acetaminophen 1 tab 09/13/25 17:53 Hydrocodone/Acetaminophen (*Crx) 5-325 Mg Tablet PO Q4H PRN Pain Rated 4-6 Alendronate Sodium 70 mg 09/20/25 09:00 Alendronate Sodium 70 Mg Tablet PO WEEKLY KANDY Alprazolam 0.75 mg 09/14/25 21:00 Alprazolam (*Crx) 0.25 Mg Tablet PO HS KANDY Aspirin 81 mg 09/14/25 09:00 Aspirin 81 Mg Enteric Tablet PO QAM [facility] Calcium Carbonate 200 mg 09/13/25 18:12 Calcium Carbonate (Tums) 500 Mg (200 Mg Elemental) PO Q6H PRN Indigestion Calcium Carbonate 500 mg 09/14/25 09:00 Calcium/Vitamin D 500 Mg/5 Mcg (200 I.U.) Tablet PO QAM [facility] Clopidogrel Bisulfate 75 mg 09/14/25 09:00 Clopidogrel Bisulfate 75 Mg Tablet PO QAM [facility] Docusate Sodium 100 mg 09/13/25 18:12 Docusate Sodium 100 Mg Capsule PO Q12H PRN Constipation Hydralazine HCl 10 mg 09/13/25 18:12 09/13/25 18:56 Hydralazine Hcl 20 Mg/Ml Vial IV PUSH 10 mg Q8H PRN Administration Blood Pressure - High, >180/90 Lisinopril 20 mg 09/14/25 21:00 Lisinopril 20 Mg Tablet PO HS [facility] Morphine Sulfate 2 mg 09/13/25 17:53 Morphine Sulfate (*Crx) 4 Mg/Ml Inj IV PUSH Q2H PRN Pain Rated 7-10 Multivitamins/Calcium 1 tablet 09/14/25 09:00 Therapeutic Multivitamins/Minerals Tab (*Bkc) PO DAILY [facility] Nonformulary 1 each 09/13/25 21:17 Nutritional XX 09/14/25 21:16 Supplementnonformula PRN PRN ry Drug (Glucosamine PROTOCOL Sulfate [ Glucosamine] 50 Ondansetron HCl 4 mg 09/13/25 17:53 Ondansetron Inj 4 Mg/2 Ml Vial IV PUSH Q4H PRN Nausea Perflutren Lipid Microsphere 0 ml 09/13/25 18:09 Perflutren Lipid Microspheres 1.5 Ml Vial Diluted To 10 Ml Total Volume IV PUSH 09/16/25 18:09 ONCE PRN adequate visualization Protocol Simvastatin 40 mg 09/14/25 21:00 Simvastatin 20 Mg Tablet PO HS [facility] Radiology Results: ITS Impressions Head CT 09/13/25 15:13 IMPRESSION: 1. No acute intracranial abnormality. As per stroke protocol, I called these results to emergency room, discussed with Dr. Ramy So MD at 09/13/2025 15:15 [employer]. Head/Neck CTA 09/13/25 15:34 IMPRESSION: 1.: Unremarkable CT angiogram of the head and neck. 2: Patchy groundglass opacities of the lung apices, differential diagnosis in order of likelihood include atypical or viral infection, hypersensitivity pneumonitis, smoking-related lung disease and pulmonary edema. Chest X-Ray 09/13/25 16:03 IMPRESSION: 1: NO ACUTE CARDIOPULMONARY DISEASE. Labs Labs: Laboratory Results - last 24 hr 09/13/25 09/13/25 09/13/25 14:55 15:05 15:12 WBC 7.0 RBC 4.57 Hgb 13.1 Hct 39.7 MCV 86.9 MCH 28.7 MCHC 33.0 RDW 13.2 Plt Count 256 MPV 10.2 Immature Gran % (Auto) 0.4 Neut % (Auto) 60.1 Lymph % (Auto) 24.5 [place] % (Auto) 11.1 H Eos % (Auto) 3.5 Baso % (Auto) 0.4 Lymph # (Auto) 1.70 [place] # (Auto) 0.8 H Eos # (Auto) 0.2 Baso # (Auto) 0.0 Abs Immat Gran (auto) 0.03 Absolute Neuts (auto) 4.2 Absolute Nucleated RBC 0.000 Nucleated RBC % 0.0 PT 12.9 INR 1.0 APTT 30.5 Sodium 138 Potassium 4.6 Chloride 104 Carbon Dioxide 25 Anion Gap 9 BUN 21 H Creatinine 1.10 1.03 H Estim Creat Clear Calc Not Reportable 38 Estimated GFR 48 L 51 L Glucose 89 POC Capillary Glucose 105 Hemoglobin A1c Calcium 10.1 Total Bilirubin 0.6 AST 44 H ALT 26 Alkaline Phosphatase 48 Troponin I < 0.012 Total Protein 7.7 Albumin 4.5 Cholesterol Urine Color Urine Appearance Urine pH Ur Specific [place] Urine Protein Urine Glucose (UA) Urine Ketones Ur Blood (Man) Urine Nitrate Urine Bilirubin Urine Urobilinogen Leukocyte Esterase Rfl Influenza A (RT-PCR) Influenza B (RT-PCR) RSV (RT-PCR) SARS-CoV-2 RNA (RT-PCR) 09/13/25 09/13/25 09/14/25 16:32 16:39 05:12 WBC RBC Hgb Hct MCV MCH MCHC RDW Plt Count MPV Immature Gran % (Auto) Neut % (Auto) Lymph % (Auto) [place] % (Auto) Eos % (Auto) Baso % (Auto) Lymph # (Auto) [place] # (Auto) Eos # (Auto) Baso # (Auto) Abs Immat Gran (auto) Absolute Neuts (auto) Absolute Nucleated RBC Nucleated RBC % PT INR APTT Sodium Potassium Chloride Carbon Dioxide Anion Gap BUN Creatinine Estim Creat Clear Calc Estimated GFR Glucose POC Capillary Glucose Hemoglobin A1c Calcium Total Bilirubin AST ALT Alkaline Phosphatase Troponin I Total Protein Albumin Cholesterol 151 Urine Color Yellow Urine Appearance Clear Urine pH 6.0 Ur Specific [place] > 1.045 H Urine Protein Negative Urine Glucose (UA) Negative Urine Ketones Negative Ur Blood (Man) Negative Urine Nitrate Negative Urine Bilirubin Negative Urine Urobilinogen 0.2 Leukocyte Esterase Rfl Negative Influenza A (RT-PCR) Negative Influenza B (RT-PCR) Negative RSV (RT-PCR) Negative SARS-CoV-2 RNA (RT-PCR) Negative 09/14/25 05:13 WBC RBC Hgb Hct MCV MCH MCHC RDW Plt Count MPV Immature Gran % (Auto) Neut % (Auto) Lymph % (Auto) [place] % (Auto) Eos % (Auto) Baso % (Auto) Lymph # (Auto) [place] # (Auto) Eos # (Auto) Baso # (Auto) Abs Immat Gran (auto) Absolute Neuts (auto) Absolute Nucleated RBC Nucleated RBC % PT INR APTT Sodium Potassium Chloride Carbon Dioxide Anion Gap BUN Creatinine Estim Creat Clear Calc Estimated GFR Glucose POC Capillary Glucose Hemoglobin A1c 5.6 Calcium Total Bilirubin AST ALT Alkaline Phosphatase Troponin I Total Protein Albumin Cholesterol Urine Color Urine Appearance Urine pH Ur Specific [place] Urine Protein Urine Glucose (UA) Urine Ketones Ur Blood (Man) Urine Nitrate Urine Bilirubin Urine Urobilinogen Leukocyte Esterase Rfl Influenza A (RT-PCR) Influenza B (RT-PCR) RSV (RT-PCR) SARS-CoV-2 RNA (RT-PCR) Quality VTE Prophylaxis VTE prophylaxis: mechanical ordered
[2025-09-14] MEDS: ASPIRIN 81 MG ENTERIC TABLET PO (09:19)
[2025-09-14] MEDS: CLOPIDOGREL BISULFATE 75 MG TABLET PO (09:19)
[2025-09-14] MEDS: CALCIUM/VITAMIN D 500 MG/5 MCG (200 I.U.) TABLET PO (09:19)
[2025-09-14] MEDS: THERAPEUTIC MULTIVITAMINS/MINERALS TAB (*BKC) 1 TABLET PO (09:19)
[2025-09-14 09:27] LABS: Hematocrit 37.2 % (37.0-47.0); Hemoglobin 12.2 g/dL (12.0-15.0); Immature Granulocyte Percent A 0.5 % (0-0.5); Lymphocytes Absolute Auto 1.42 K/mm3 (0.9-3.2); Mean Corpuscular HGB Conc 32.8 g/dl (32-36); Mean Corpuscular Hemoglobin 29.0 pg (26-34); Mean Corpuscular Volume 88.6 fl (80-100); Nucleated Red Blood Cells Absolute Auto 0.000 K/mm3 (0.0-0.012); Nucleated Red Blood Cells Perc 0.0 % (0.0-0.2); Platelet Count Result 237 k/mm3 (150-375); Red Blood Count 4.20 M/mm3 (4.2-5.4); White Blood Count 5.7 K/mm3 (4.5-10.0)
[2025-09-14 10:23] LABS: Alanine Aminotransferase 20 U/L (6-35); Albumin Level 3.6 g/dL (3.5-5.1); Alkaline Phosphatase 48 U/L (38-126); Anion Gap 6 mmol/L (4-12); Aspartate Amino Transferase 28 U/L (14-36); Bilirubin,Total 0.5 mg/dL (0.2-1.3); Blood Urea Nitrogen 16 mg/dL (7-17); Calcium 9.0 mg/dL (8.4-10.2); Carbon Dioxide 23 mmol/L (22-30); Chloride 109 mmol/L (98-107); Estimated CRCL calculation 51 ml/min; Estimated Glomerular Filt Rate > 60; Glucose 97 mg/dL (65-110); Potassium 4.1 mmol/L (3.4-5.0); Sodium 138 mmol/L (137-145); Total Protein 6.1 g/dL (6.3-8.2)
[2025-09-14 10:38] LABS: HDL Direct 66 mg/dL
[2025-09-14 10:52] LABS: Cholesterol 152 mg/dL (0-200); Triglycerides 105 mg/dL (<150)
[2025-09-14 14:00] VITALS: BP 156/60; PULSE 76; RESP 18; TEMP 36; O2SAT 96
[2025-09-14] MEDS: ALPRAZolam (*CRX) 0.25 MG TABLET 0.75 MG PO (20:21)
[2025-09-14] MEDS: SIMVASTATIN 20 MG TABLET 40 MG PO (20:21)
[2025-09-14 21:04] VITALS: BP 190/78; PULSE 73; RESP 17; TEMP 36.8; O2SAT 98
[2025-09-14 21:10] VITALS: BP 149/57
[2025-09-15 05:56] VITALS: BP 156/83; PULSE 93; RESP 16; TEMP 36.6; O2SAT 96
[2025-09-15 06:51] LABS: Hematocrit 38.3 % (37.0-47.0); Hemoglobin 12.5 g/dL (12.0-15.0); Immature Granulocyte Percent A 0.5 % (0-0.5); Lymphocytes Absolute Auto 1.23 K/mm3 (0.9-3.2); Mean Corpuscular HGB Conc 32.6 g/dl (32-36); Mean Corpuscular Hemoglobin 28.7 pg (26-34); Mean Corpuscular Volume 88.0 fl (80-100); Nucleated Red Blood Cells Absolute Auto 0.000 K/mm3 (0.0-0.012); Nucleated Red Blood Cells Perc 0.0 % (0.0-0.2); Platelet Count Result 227 k/mm3 (150-375); Red Blood Count 4.35 M/mm3 (4.2-5.4); White Blood Count 5.9 K/mm3 (4.5-10.0)
[2025-09-15 07:23] LABS: Alanine Aminotransferase 20 U/L (6-35); Albumin Level 3.9 g/dL (3.5-5.1); Alkaline Phosphatase 52 U/L (38-126); Anion Gap 6 mmol/L (4-12); Aspartate Amino Transferase 26 U/L (14-36); Bilirubin,Total 0.5 mg/dL (0.2-1.3); Blood Urea Nitrogen 15 mg/dL (7-17); Calcium 9.1 mg/dL (8.4-10.2); Carbon Dioxide 26 mmol/L (22-30); Chloride 108 mmol/L (98-107); Estimated CRCL calculation 44 ml/min; Estimated Glomerular Filt Rate > 60; Glucose 113 mg/dL (65-110); Potassium 4.0 mmol/L (3.4-5.0); Sodium 140 mmol/L (137-145); Total Protein 6.6 g/dL (6.3-8.2)
--- NOTE | 2025-09-15 08:43 | P.DS_ITS ---
DS: Admitting Diagnosis Discharge Date 09/15/2025 Admitting Diagnosis TIA DS: Discharge Diagnosis Discharge Diagnosis (1) Brain TIA: Code(s): G45.9 - Transient cerebral ischemic attack, unspecified Status: Acute Assessment and Plan: Transient word-finding difficulty that lasted for approximately 10 minutes discovered at 2:00 p.m. on 09/13. Last known well at 1:30 p.m. on 09/13. Head CT and head/neck CTA showed no significant findings or acute occlusion. Not candidate for thrombolytics or thrombectomy as the symptoms have resolved and there was no large vessel occlusion on imaging. No previously known history of CVA. 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 - admission for observation and telemetry - neurology consulted, Dr. Quiroga. Not available physically for consult tomorrow, however is okay with being called with MRI results and can discuss case via telephone and give further recommendations. - brain MRI w/wo ordered >> patient does have a history of claustrophobia, offered anxiolytic prior to imaging but patient declined ---MRI 1. Normal brain. No acute intracranial process or abnormally enhancing brain lesions. - echo w/Bubble ordered, pending - neuro checks Q4 - monitor daily labs, check lipid panel and A1C --Lipid panel WDL --A1c 5.6 - per Neurology recommendations to the ED provider, start aspirin and Plavix now. Patient started on Plavix 75 mg PO daily, home Celebrex held. Daily ASA 81 mg and simvastatin continue. Discussed with Dr. Quiroga that since MRI brain WDL, pt is OK to be discharged with continued ASA 81mg & Simvastatin if echo is WDL. ECHO negative bubble study. Plavix can be discontinued then as well. Neuro f/u outpt needed. (2) Hypertension: Qualifiers: Hypertension type: primary hypertension Qualified Code(s): I10 - Essential (primary) hypertension Code(s): I10 - Essential (primary) hypertension Status: Chronic Assessment and Plan: - chronic, currently 150/58. Given home dose of lisinopril in the ED prior to admission. Hydralazine p.r.n. for BP greater than 180/90. - continue home medications: Lisinopril 20 mg HS - monitor (3) Hyperlipidemia: Qualifiers: Hyperlipidemia type: unspecified Qualified Code(s): E78.5 - H yperlipidemia, unspecified Code(s): E78.5 - Hyperlipidemia, unspecified Status: Chronic Assessment and Plan: - updated lipid panel WDL - continue home simvastatin 40 mg daily (4) Anxiety: Code(s): F41.9 - Anxiety disorder, unspecified Status: Chronic Assessment and Plan: History of anxiety disorder with panic attacks. No current evidence of exacerbation. - continue home medication: Xanax 0.75 mg HS Plan Discharge home on continued ASA 81mg and statin. F/u with neuro outpt. DS: Summary Hospital Course Reason for hospitalization: TIA Hospital Course: The patient is an 79-year-old female who presented from home on 09/13/25 with an episode of transient word finding difficulty, dizziness, and generalized weakness beginning around 1400, with last known well at approximately 1330. Symptoms lasted approximately 10 minutes and resolved spontaneously prior to arrival. On presentation, she was hemodynamically stable but hypertensive, and neurologic examination remained nonfocal with an NIH Stroke Scale of 0 throughout hospitalization. Initial ED evaluation included laboratory studies notable for mild prerenal azotemia and elevated urine specific gravity, which improved with IV fluids, and no evidence of infection, anemia, electrolyte disturbance, or myocardial injury. CT head showed no acute intracranial abnormality, and CTA head and neck demonstrated no large vessel occlusion or significant stenosis. Chest X-ray was without acute cardiopulmonary disease. She was admitted for observation and telemetry for suspected TIA. Neurology was consulted and recommended dual antiplatelet therapy with aspirin and clopidogrel, statin continuation, and further stroke workup. MRI brain with and without contrast demonstrated no acute infarct or abnormal enhancement. Transthoracic echocardiogram with bubble study was negative for cardioembolic source. Telemetry monitoring revealed no arrhythmia. Blood pressure was managed with continuation of home lisinopril and PRN antihypertensives, with improvement over the hospital course. Lipid panel was within goal and A1c was 5.6. Given negative MRI and echocardiogram, neurology recommended discontinuation of clopidogrel and continuation of aspirin and statin therapy. The patient remained neurologically intact, returned to baseline functional status, and had no recurrent symptoms. She was deemed stable for discharge home on 09/15/25 with outpatient followup with primary care and neurology. Status at Discharge Overall status at discharge: patient is back to baseline Time Spent with Patient Time attestation: Total time spent providing and/or coordinating discharge services: Time spent: Greater than 30 minutes Exam Narrative: +[place] Const: General: comfortable and no acute distress Other: , female, elderly, nontoxic appearance HENMT: Face/Nose/Sinus: Normal nares present Mouth: Yes moist mucous membranes Eyes: General: appearance normal, both eyes and all related structures Sclera: sclerae normal Resp: Effort & Inspection: normal respiratory effort Auscultation: clear to auscultation bilaterally Cardio: Rate: regular rate Rhythm: regular rhythm Other: S1-S2 present without murmur, rub, ectopy GI: Other: Abdomen soft, nondistended, nontender. Normoactive bowel sounds in all quadrants. Skin: General skin exam: normal color and no rashes or lesions noted Wounds: no wounds Neuro: Cranial nerves: Yes Equal, round and reactive pupils present Speech: normal speech Motor exam (neuro): 5/5 motor strength present throughout Sensory Exam: normal sensation Other: A&O x4, NIHSS 0 Extrem: General: normal to inspection Psych: Mental Status: mental status grossly normal Affect: normal affect Other: Good insight and judgment, pleasant DS: Data Data Completed and Pending Completed studies during hospitalization: Labs, urine, imaging Labs on day of discharge: Labs from last 24 hours 09/15/25 09/14/25 09/14/25 06:20 09:08 05:10 WBC 5.9 5.7 RBC 4.35 4.20 Hgb 12.5 12.2 Hct 38.3 37.2 MCV 88.0 88.6 MCH 28.7 29.0 MCHC 32.6 32.8 RDW 13.2 13.3 Plt Count 227 237 MPV 10.5 H 10.6 H Immature Gran % (Auto) 0.5 0.5 Neut % (Auto) 64.7 58.9 Lymph % (Auto) 20.8 25.0 [place] % (Auto) 10.3 H 11.2 H Eos % (Auto) 3.4 3.7 Baso % (Auto) 0.3 0.7 Lymph # (Auto) 1.23 1.42 [place] # (Auto) 0.6 0.6 Eos # (Auto) 0.2 0.2 Baso # (Auto) 0.0 0.0 Abs Immat Gran (auto) 0.03 0.03 Absolute Neuts (auto) 3.8 3.4 Absolute Nucleated RBC 0.000 0.000 Nucleated RBC % 0.0 0.0 Sodium 140 138 Potassium 4.0 4.1 Chloride 108 H 109 H Carbon Dioxide 26 23 Anion Gap 6 6 BUN 15 16 Creatinine 0.82 0.70 Estim Creat Clear Calc 44 51 Estimated GFR > 60 > 60 Glucose 113 H 97 Calcium 9.1 9.0 Total Bilirubin 0.5 0.5 AST 26 28 ALT 20 20 Alkaline Phosphatase 52 48 Total Protein 6.6 6.1 L Albumin 3.9 3.6 Triglycerides 105 Cholesterol 152 LDL Cholesterol Direct 68 HDL Direct 66 Discharge Plan Discharge Attending physician on discharge: Filemon Lopez Consulting providers: Ramiro Elmore; Ted Quiroga; Melissa Connell Discharging Clinician: Melissa Connell Anticipated Discharge Date/Time: 09/15/25 11:00 Patient Disposition: Home Activity: as tolerated Diet: heart healthy Discharge Instructions: You were diagnosed with a?transient ischemic attack (TIA). Your MRI did?not?show evidence of a stroke (CVA). A TIA is a temporary interruption of blood flow to the brain and is a warning sign for possible future stroke. Medications * Continue?aspirin 81 mg daily?as prescribed. * Continue?simvastatin?as prescribed. * Plavix (clopidogrel) has been discontinued?? do not restart unless directed. * Take all medications exactly as prescribed. Do not stop or change doses without medical advice. Activity * Resume normal activities as tolerated. * Avoid smoking, vaping, or tobacco use. * Limit alcohol intake. Risk Factor Management * Maintain good control of blood pressure, cholesterol, and blood sugar (if diabetic). * Follow a heart-healthy, low-salt diet. * Engage in regular physical activity as tolerated. When to Seek Emergency Care?Call?911 immediately?if you develop any signs of stroke, even if they resolve: * Sudden weakness or numbness of the face, arm, or leg (especially on one side) * Trouble speaking or understanding speech * Sudden vision changes * Dizziness, loss of balance, or severe headache Follow-Up * Follow up with your?primary care provider and neurology?as an outpatient. * Your blood pressure has been elevated while in the hospital, follow-up with your primary care provider for potential medical management increase and/or change in medications. It is important to control your BP to prevent future TIA or strokes. * Keep all follow-up appointments and complete any recommended testing. Patient Instructions: Transient Ischemic Attack (GEN), Chronic Hypertension (GEN) Patient Language: Ukrainian Stand Alone Forms: General Discharge Information Follow-up/Referrals: SarbjitAdelaida MD [Primary Care Provider, Family Practice] - 2 Weeks Ted Quiroga MD [Physician, Neurology] - 2 Weeks Discharge Medications: Continued Centrum Silver Women 8 mg iron-400 mcg-300 mcg tablet 1 tablet PO DAILY glucosamine sulfate [Glucosamine] 500 mg Tablet 500 mg PO HS calcium carbonate-vitamin D3 600 mg-5 mcg (200 unit) Tablet 1 tablet PO DAILY aspirin 81 mg capsule 81 mg PO DAILY celecoxib [Celebrex] 200 mg capsule 200 mg PO HS alprazolam 0.25 mg tablet 0.75 mg PO HS lisinopril 20 mg tablet 20 mg PO HS Qty: 90 3RF alendronate [Fosamax] 70 mg tablet 70 mg PO WEEKLY 90 Days Qty: 13 2RF simvastatin 40 mg tablet 40 mg PO HS Qty: 90 3RF Date of admission: 09/13/25 17:53 Primary Care Provider: RyleyAdelaida Admitting Provider: Justice Zayas Attending physician on admission: Justice Zayas Condition: Stable Quality VTE Prophylaxis VTE prophylaxis: mechanical ordered Hospitalist MIPS Heart Failure (Exclusion) Patient has history of Heart Transplant or Left Ventricular Assistive Device?: No IF YES, STOP HERE Heart Failure (Qualifier) Patient has current or prior documentation of LVEF less than or equal to 40%, or mod/servere depressed LVSF?: No IF NO, STOP HERE
[2025-09-15] MEDS: THERAPEUTIC MULTIVITAMINS/MINERALS TAB (*BKC) 1 TABLET PO (08:58)
[2025-09-15] MEDS: ASPIRIN 81 MG ENTERIC TABLET PO (08:58)
[2025-09-15] MEDS: CALCIUM/VITAMIN D 500 MG/5 MCG (200 I.U.) TABLET PO (08:58)
== END 2025-09-15 10:27 | disposition home or self-care (01) ==
LOC: ANHED 17:43 → ANH3MEDSUR 09-14 06:11
PROVIDERS: Student in an Organized Health Care Education/Training Program; Admitting Provider Internal Medicine; Emergency Provider Emergency Medicine; PCP Family Medicine; Visit Provider Internal Medicine
DX: G45.9 Transient cerebral ischemic attack, unspecified (principal); I10 Essential (primary) hypertension; E78.5 Hyperlipidemia, unspecified; R73.03 Prediabetes; F41.9 Anxiety disorder, unspecified; H35.30 Unspecified macular degeneration; M17.9 Osteoarthritis of knee, unspecified; M25.561 Pain in right knee; M25.461 Effusion, right knee; Z20.822 Contact with and (suspected) exposure to COVID-19; Z79.82 Long term (current) use of aspirin; Z79.1 Long term (current) use of non-steroidal anti-inflammatories (NSAID); Z79.83 Long term (current) use of bisphosphonates; Z96.1 Presence of intraocular lens; Z98.49 Cataract extraction status, unspecified eye; Z93.0 Tracheostomy status; Z90.49 Acquired absence of other specified parts of digestive tract; Z98.82 Breast implant status; Z82.3 Family history of stroke; Z82.49 Family history of ischemic heart disease and other diseases of the circulatory system; Z83.3 Family history of diabetes mellitus
CPT/HCPCS: 36415; 70450; 70496; 70498; 70553; 71045; 80053; 80061; 81003; 82465; 82948; 83036; 84484; 85025; 85610; 85730; 87637; 93005; 93306; 96361; 96374; 96375; 96376; 97161; 99285; A9270; A9577; G0378; J0360; J7030; Q9967